=== PATIENT | female | born 1970 | race Caucasian/White ===

== ENCOUNTER 2020-07-27 22:01 | Inpatient (IN) | payer MEDICARE, MEDICAID ==
[~2020-07-27] VITALS: Ht 170.2 cm; Wt 81.7 kg
[2020-07-27] MEDS ORDERED: BUPR100SR PO (22:41)
[2020-07-27] MEDS ORDERED: FLUT16H NASAL (22:41)
[2020-07-27] MEDS ORDERED: QUET25TA PO (22:41)
[2020-07-27] MEDS ORDERED: ACET-2247 PO (22:41)
[2020-07-27] MEDS ORDERED: CHOL500043 PO (22:41)
[2020-07-27] MEDS ORDERED: ROSU10TA22 PO (22:41)
[2020-07-27] MEDS ORDERED: BENZ30CR TP (22:41)
[2020-07-27] MEDS ORDERED: PHYT100T PO (22:41)
[2020-07-27] MEDS ORDERED: PSEU60 PO (22:41)
[2020-07-27] MEDS ORDERED: ASPI-1450 PO (22:41)
[2020-07-27] MEDS ORDERED: METH-372 PO (22:41)
[2020-07-27] MEDS ORDERED: DOCU-350 PO (22:41)
[2020-07-27] MEDS ORDERED: SUMA25TA9 PO (22:41)
[2020-07-27] MEDS ORDERED: LUMA42CA PO (22:41)
[2020-07-27] MEDS ORDERED: POTA20TA83 PO (22:41)
[2020-07-27] MEDS ORDERED: DEXL30CA3 PO (22:41)
[2020-07-27] MEDS ORDERED: ONDA-104 PO (22:41)
[2020-07-27] MEDS ORDERED: CETI-450 PO (22:41)
[2020-07-27] MEDS ORDERED: FLUO-191 PO (22:41)
[2020-07-27] MEDS ORDERED: DICL4100G TP (22:41)
[2020-07-27] MEDS ORDERED: LEVAHFA IH (22:41)
[2020-07-27] MEDS ORDERED: LEVO88TA4 PO (22:41)
[2020-07-27] MEDS ORDERED: BUDE10.2 IH (22:41)
[2020-07-27] MEDS ORDERED: LAMO100 PO (22:41)
[2020-07-27] MEDS ORDERED: TOPI100T37 PO (22:41)
[2020-07-27] MEDS ORDERED: IBUP-2070 PO (22:41)
[2020-07-27] MEDS ORDERED: MONT-35 PO (22:41)
[2020-07-27] MEDS ORDERED: MUPI15CR12 TP (22:41)
[2020-07-27 22:47] LABS: COVID AG,FIA SOURCE NASOPHARYNGEAL
[2020-07-27 22:49] LABS: EOSINOPHILS % (AUTO) 0.8 % (1.0-6.0); HEMATOCRIT 40.5 % (36-46); HEMOGLOBIN 13.4 g/dL (12.0-16.0); LYMPHOCYTES % (AUTO) 22.5 % (22.0-44.0); MEAN CORPUSCULAR HEMOGLOBIN 31.7 pg (26.0-34.0); MEAN CORPUSCULAR HGB CONC 33.1 G/dL (31.0-37.0); MEAN CORPUSCULAR VOLUME 96 fL (80-100); MONOCYTES # (AUTO) 0.3 K/uL (0.1-1.0); MONOCYTES % (AUTO) 7.7 % (2.0-9.0); PLATELET COUNT (AUTO) 154 K/uL (150-450); RED BLOOD CELL COUNT(AUTO) 4.23 MIL/uL (4.00-5.20); RED CELL DISTRIBUTION WIDTH 14.2 % (11.5-14.5)
[2020-07-27 22:58] LABS: ANION GAP 13 mmol/L (8-16); CALCIUM, TOTAL 8.6 mg/dL (8.8-10.5); CARBON DIOXIDE 21 mmol/L (22-29); CHLORIDE 109 mmol/L (98-107); CREATININE 0.94 mg/dL (0.60-1.30); GLOMERULAR FILTR. RATE CALC > 60 mL/min (>60); GLUCOSE,RANDOM 95 mg/dL (70-110); POTASSIUM 3.6 mmol/L (3.5-5.1); SODIUM SERUM 143 mmol/L (136-145); UREA NITROGEN, BLOOD 17 mg/dL (7-18)
[2020-07-27 23:09] LABS: ALANINE AMINOTRANSFERASE 39 U/L (12-78); ALBUMIN 3.8 g/dL (3.4-5.0); ALKALINE PHOSPHATASE 79 U/L (46-116); ASPARTATE AMINOTRANSFERASE 26 U/L (15-37); BILIRUBIN,TOTAL 0.4 mg/dL (0.1-1.0); HCG,QUANTITATIVE 4 mIU/mL (0-6); TOTAL PROTEIN, SERUM 6.5 g/dL (6.4-8.2)
[2020-07-27] MEDS ORDERED: HALOPERIDOL 5 MG TABLET PO PRN (23:15)
[2020-07-28] MEDS ORDERED: IBUPROFEN 800 MG TABLET PO ONE (00:15)
[2020-07-28 00:34] LABS: AMPHET/METH SCREEN,URINE NEGATIVE (NEGATIVE); BARBITURATE SCREEN, URINE NEGATIVE (NEGATIVE); BENZODIAZEPINES SCREEN,URINE NEGATIVE (NEGATIVE); CANNABINOID SCREEN,URINE NEGATIVE (NEGATIVE); COCAINE SCREEN,URINE NEGATIVE (NEGATIVE); METHADONE SCREEN, URINE NEGATIVE (NEGATIVE); OPIATE SCREEN,URINE NEGATIVE (NEGATIVE)
[2020-07-28 00:58] LABS: PHENCYCLIDINE SCREEN,URINE NEGATIVE (NEGATIVE)
[2020-07-28] MEDS: ZOLPIDEM TARTRATE 10 MG TABLET PO PRN (02:40)
[2020-07-28 03:02] VITALS: BP 112/64
[2020-07-28 08:00] LABS: CHOL/HDL RATIO 1.6 (3.9-5.7)
[2020-07-28 08:08] VITALS: BP 108/64
[2020-07-28] MEDS: NICOTINE 21 MG/24 HOUR PATCH TD SCH (09:20)
[2020-07-28] MEDS ORDERED: SUMAtriptan SUCCINATE 25 MG TABLET PO PRN (13:30)
[2020-07-28] MEDS ORDERED: BENZOCAINE/MENTHOL LOZENGE PO PRN (13:30)
[2020-07-28] MEDS ORDERED: PETROLATUM,WHITE 28 GM JELLY TP PRN (13:30)
[2020-07-28] MEDS ORDERED: BACITRACIN 28 GM OINTMENT TP PRN (13:30)
[2020-07-28] MEDS ORDERED: MAG HYDROX/AL HYDROX/SIMETH ES 30 ML SUSPENSION UDCUP PO PRN (13:30)
[2020-07-28] MEDS ORDERED: LOPERAMIDE HCL 2 MG CAPSULE PO PRN (13:30)
[2020-07-28] MEDS ORDERED: ALBUTEROL SULFATE HFA 90 MCG/PUFF 8 GM INHALER IH PRN (13:30)
[2020-07-28] MEDS ORDERED: ONDANSETRON HCL 4 MG TABLET PO PRN (13:30)
[2020-07-28] MEDS ORDERED: LIDOCAINE 5% TRANSDERMAL PATCH TD PRN (13:30)
[2020-07-28] MEDS ORDERED: ACETAMINOPHEN 325 MG TABLET PO PRN (13:30)
[2020-07-28] MEDS ORDERED: CloNIDine HCL 0.1 MG TABLET PO PRN (13:30)
[2020-07-28] MEDS ORDERED: OMEPRAZOLE 20 MG CAPSULE PO PRN (13:30)
[2020-07-28] MEDS: DOCUSATE SODIUM 100 MG CAPSULE PO SCH (13:39)
[2020-07-28 13:52] VITALS: BP 118/68
[2020-07-28] MEDS: IBUPROFEN 600 MG TABLET PO PRN (13:58)
[2020-07-28 16:18] VITALS: BP 106/60
[2020-07-28] MEDS: BUDESONIDE/FORMOTEROL FUMARATE 160-4.5 MCG/PUFF 10.2 GM INHALER IH SCH ×2 (17:00→17:18)
[2020-07-28] MEDS: METHOCARBAMOL 750 MG TABLET PO SCH (17:16)
[2020-07-28] MEDS: DICLOFENAC SODIUM 1% 100 GM GEL [4GM] TP SCH ×2 (17:17→20:21)
[2020-07-28] MEDS: QUEtiapine FUMARATE 25 MG TABLET PO SCH (20:21)
[2020-07-29] MEDS: IBUPROFEN 600 MG TABLET PO PRN (05:54)
[2020-07-29 05:56] VITALS: BP 109/70
[2020-07-29] MEDS ORDERED: LEVOTHYROXINE SODIUM 88 MCG TABLET PO SCH (06:30)
[2020-07-29 08:21] VITALS: BP 107/68
[2020-07-29] MEDS: MONTELUKAST SODIUM 10 MG TABLET PO SCH (10:11)
[2020-07-29] MEDS: ASPIRIN 81 MG CHEWABLE TABLET PO SCH (10:11)
[2020-07-29] MEDS: METHOCARBAMOL 750 MG TABLET PO SCH ×2 (10:11→16:11)
[2020-07-29] MEDS: ROSUVASTATIN CALCIUM 10 MG TABLET PO SCH (10:12)
[2020-07-29] MEDS: DOCUSATE SODIUM 100 MG CAPSULE PO SCH (10:12)
[2020-07-29] MEDS: BuPROPion HCL 150 MG SR TABLET PO SCH ×2 (10:12→16:22)
[2020-07-29] MEDS: BUDESONIDE/FORMOTEROL FUMARATE 160-4.5 MCG/PUFF 10.2 GM INHALER IH SCH ×2 (10:13→16:21)
[2020-07-29] MEDS: FLUTICASONE PROPIONATE 50 MCG/SPRAY 16 GM NASAL SPRAY NASAL SCH (10:14)
[2020-07-29] MEDS: DICLOFENAC SODIUM 1% 100 GM GEL [4GM] TP SCH ×4 (10:15→20:58)
[2020-07-29] MEDS: NICOTINE 21 MG/24 HOUR PATCH TD SCH (10:15)
[2020-07-29] MEDS: ARIPiprazole 10 MG TABLET PO SCH (10:53)
[2020-07-29 16:16] VITALS: BP 125/78
[2020-07-29] MEDS: QUEtiapine FUMARATE 25 MG TABLET PO SCH (20:53)
[2020-07-29] MEDS: CALCIUM CIT/VITAMIN D3 200 MG-250 UNITS TABLET PO SCH (21:53)
[2020-07-30 04:25] VITALS: BP 121/78
[2020-07-30] MEDS: IBUPROFEN 600 MG TABLET PO PRN (04:31)
[2020-07-30 08:11] VITALS: BP 130/80
[2020-07-30] MEDS: BuPROPion HCL 150 MG SR TABLET PO SCH ×3 (09:00→16:34)
[2020-07-30] MEDS: BUDESONIDE/FORMOTEROL FUMARATE 160-4.5 MCG/PUFF 10.2 GM INHALER IH SCH ×2 (09:28→16:33)
[2020-07-30] MEDS: ARIPiprazole 10 MG TABLET PO SCH (09:29)
[2020-07-30] MEDS: MONTELUKAST SODIUM 10 MG TABLET PO SCH (09:29)
[2020-07-30] MEDS: ASPIRIN 81 MG CHEWABLE TABLET PO SCH (09:29)
[2020-07-30] MEDS: FLUTICASONE PROPIONATE 50 MCG/SPRAY 16 GM NASAL SPRAY NASAL SCH (09:29)
[2020-07-30] MEDS: DOCUSATE SODIUM 100 MG CAPSULE PO SCH (09:29)
[2020-07-30] MEDS: METHOCARBAMOL 750 MG TABLET PO SCH ×2 (09:30→16:33)
[2020-07-30] MEDS: ROSUVASTATIN CALCIUM 10 MG TABLET PO SCH (09:30)
[2020-07-30] MEDS: NICOTINE 21 MG/24 HOUR PATCH TD SCH (09:31)
[2020-07-30] MEDS: DICLOFENAC SODIUM 1% 100 GM GEL [4GM] TP SCH ×4 (09:56→20:32)
[2020-07-30] MEDS ORDERED: FLUoxetine HCL 20 MG CAPSULE PO SCH (10:00)
[2020-07-30] MEDS: FLUoxetine HCL 20 MG CAPSULE PO SCH (10:25)
[2020-07-30] MEDS: OMEPRAZOLE 20 MG CAPSULE PO SCH (12:29)
[2020-07-30 16:12] VITALS: BP 120/77
[2020-07-30] MEDS: CALCIUM CIT/VITAMIN D3 200 MG-250 UNITS TABLET PO SCH (20:31)
[2020-07-30] MEDS: LEVOTHYROXINE SODIUM 88 MCG TABLET PO SCH (20:31)
[2020-07-30] MEDS: QUEtiapine FUMARATE 25 MG TABLET PO SCH (20:31)
[2020-07-31 06:01] VITALS: BP 116/75
[2020-07-31] MEDS: IBUPROFEN 600 MG TABLET PO PRN (07:00)
[2020-07-31 08:22] VITALS: BP 106/68
[2020-07-31] MEDS: NICOTINE 21 MG/24 HOUR PATCH TD SCH (09:12)
[2020-07-31] MEDS: DICLOFENAC SODIUM 1% 100 GM GEL [4GM] TP SCH ×4 (09:13→20:37)
[2020-07-31] MEDS: MONTELUKAST SODIUM 10 MG TABLET PO SCH (09:14)
[2020-07-31] MEDS: METHOCARBAMOL 750 MG TABLET PO SCH ×2 (09:14→20:21)
[2020-07-31] MEDS: ROSUVASTATIN CALCIUM 10 MG TABLET PO SCH (09:15)
[2020-07-31] MEDS: CALCIUM CIT/VITAMIN D3 200 MG-250 UNITS TABLET PO SCH ×3 (09:15→16:33)
[2020-07-31] MEDS: FLUTICASONE PROPIONATE 50 MCG/SPRAY 16 GM NASAL SPRAY NASAL SCH (09:18)
[2020-07-31] MEDS: BUDESONIDE/FORMOTEROL FUMARATE 160-4.5 MCG/PUFF 10.2 GM INHALER IH SCH ×2 (09:19→16:32)
[2020-07-31] MEDS: OMEPRAZOLE 20 MG CAPSULE PO SCH (09:22)
[2020-07-31] MEDS: ASPIRIN 81 MG CHEWABLE TABLET PO SCH (09:22)
[2020-07-31] MEDS: DOCUSATE SODIUM 100 MG CAPSULE PO SCH (09:23)
[2020-07-31] MEDS: FLUoxetine HCL 20 MG CAPSULE PO SCH (09:23)
[2020-07-31] MEDS: ARIPiprazole 10 MG TABLET PO SCH (09:23)
[2020-07-31] MEDS: BuPROPion HCL 150 MG SR TABLET PO SCH ×2 (09:28→16:32)
[2020-07-31 16:05] VITALS: BP 115/75
[2020-07-31] MEDS: QUEtiapine FUMARATE 25 MG TABLET PO SCH (20:36)
[2020-07-31] MEDS: LEVOTHYROXINE SODIUM 88 MCG TABLET PO SCH (20:36)
[2020-08-01 07:23] VITALS: BP 112/71
[2020-08-01 08:33] VITALS: BP 126/73
[2020-08-01] MEDS: MONTELUKAST SODIUM 10 MG TABLET PO SCH (09:00)
[2020-08-01 10:07] LABS: COVID AG,FIA SOURCE NASOPHARYNGEAL
[2020-08-01] MEDS: CALCIUM CIT/VITAMIN D3 200 MG-250 UNITS TABLET PO SCH ×3 (10:37→17:18)
[2020-08-01] MEDS: METHOCARBAMOL 750 MG TABLET PO SCH ×2 (10:37→20:29)
[2020-08-01] MEDS: ARIPiprazole 10 MG TABLET PO SCH (10:37)
[2020-08-01] MEDS: ASPIRIN 81 MG CHEWABLE TABLET PO SCH (10:38)
[2020-08-01] MEDS: ROSUVASTATIN CALCIUM 10 MG TABLET PO SCH (10:38)
[2020-08-01] MEDS: BuPROPion HCL 150 MG SR TABLET PO SCH (10:38)
[2020-08-01] MEDS: DOCUSATE SODIUM 100 MG CAPSULE PO SCH (10:38)
[2020-08-01] MEDS: OMEPRAZOLE 20 MG CAPSULE PO SCH (10:38)
[2020-08-01] MEDS: FLUoxetine HCL 20 MG CAPSULE PO SCH (10:38)
[2020-08-01] MEDS: BUDESONIDE/FORMOTEROL FUMARATE 160-4.5 MCG/PUFF 10.2 GM INHALER IH SCH ×2 (10:39→17:18)
[2020-08-01] MEDS: FLUTICASONE PROPIONATE 50 MCG/SPRAY 16 GM NASAL SPRAY NASAL SCH (10:39)
[2020-08-01] MEDS: CHOLECALCIFEROL (VIT D3) 50,000 UNITS [1,250 MCG] CAPSULE PO SCH (10:40)
[2020-08-01] MEDS: NICOTINE 21 MG/24 HOUR PATCH TD SCH (10:41)
[2020-08-01] MEDS: DICLOFENAC SODIUM 1% 100 GM GEL [4GM] TP SCH ×4 (10:41→20:30)
[2020-08-01] MEDS ORDERED: ARIPiprazole ER SUSPENSION 400 MG PRE-FILLED DUAL CHAMBER SYRINGE IM SCH (12:30)
[2020-08-01 16:11] VITALS: BP 122/76
[2020-08-01] MEDS: BuPROPion HCL 100 MG SR TABLET PO SCH (17:17)
[2020-08-01] MEDS: QUEtiapine FUMARATE 25 MG TABLET PO SCH (20:29)
[2020-08-01] MEDS: LEVOTHYROXINE SODIUM 88 MCG TABLET PO SCH (20:29)
[2020-08-02 06:19] VITALS: BP 109/62
[2020-08-02 08:10] VITALS: BP 105/66
[2020-08-02] MEDS: DOCUSATE SODIUM 100 MG CAPSULE PO SCH (08:53)
[2020-08-02] MEDS: CALCIUM CIT/VITAMIN D3 200 MG-250 UNITS TABLET PO SCH ×3 (08:53→16:33)
[2020-08-02] MEDS: ROSUVASTATIN CALCIUM 10 MG TABLET PO SCH (08:54)
[2020-08-02] MEDS: ASPIRIN 81 MG CHEWABLE TABLET PO SCH (08:54)
[2020-08-02] MEDS: METHOCARBAMOL 750 MG TABLET PO SCH ×2 (08:54→16:33)
[2020-08-02] MEDS: ARIPiprazole 15 MG TABLET PO SCH (08:54)
[2020-08-02] MEDS: FLUTICASONE PROPIONATE 50 MCG/SPRAY 16 GM NASAL SPRAY NASAL SCH (08:55)
[2020-08-02] MEDS: BUDESONIDE/FORMOTEROL FUMARATE 160-4.5 MCG/PUFF 10.2 GM INHALER IH SCH (08:55)
[2020-08-02] MEDS: OMEPRAZOLE 20 MG CAPSULE PO SCH (08:55)
[2020-08-02] MEDS: MONTELUKAST SODIUM 10 MG TABLET PO SCH (08:56)
[2020-08-02] MEDS: CHOLECALCIFEROL (VIT D3) 50,000 UNITS [1,250 MCG] CAPSULE PO SCH (08:56)
[2020-08-02] MEDS: NICOTINE 21 MG/24 HOUR PATCH TD SCH (08:57)
[2020-08-02] MEDS: DICLOFENAC SODIUM 1% 100 GM GEL [4GM] TP SCH ×4 (08:57→20:29)
[2020-08-02] MEDS: FLUoxetine HCL 20 MG CAPSULE PO SCH (09:00)
[2020-08-02] MEDS: BuPROPion HCL 100 MG SR TABLET PO SCH ×2 (09:05→16:33)
[2020-08-02 16:15] VITALS: BP 136/72
[2020-08-02] MEDS: LEVALBUTEROL TARTRATE HFA 45 MCG/PUFF 15 GM INHALER IH SCH (16:33)
[2020-08-02] MEDS: QUEtiapine FUMARATE 25 MG TABLET PO SCH (20:28)
[2020-08-02] MEDS: LEVOTHYROXINE SODIUM 88 MCG TABLET PO SCH (20:28)
[2020-08-03] MEDS: IBUPROFEN 600 MG TABLET PO PRN (02:43)
[2020-08-03 02:44] VITALS: BP 119/76
[2020-08-03 08:22] VITALS: BP 126/86
[2020-08-03] MEDS: OMEPRAZOLE 20 MG CAPSULE PO SCH (09:21)
[2020-08-03] MEDS: MONTELUKAST SODIUM 10 MG TABLET PO SCH (09:22)
[2020-08-03] MEDS: CALCIUM CIT/VITAMIN D3 200 MG-250 UNITS TABLET PO SCH ×3 (09:22→16:22)
[2020-08-03] MEDS: DOCUSATE SODIUM 100 MG CAPSULE PO SCH (09:22)
[2020-08-03] MEDS: FLUoxetine HCL 20 MG CAPSULE PO SCH (09:22)
[2020-08-03] MEDS: ARIPiprazole 15 MG TABLET PO SCH (09:22)
[2020-08-03] MEDS: ASPIRIN 81 MG CHEWABLE TABLET PO SCH (09:22)
[2020-08-03] MEDS: ROSUVASTATIN CALCIUM 10 MG TABLET PO SCH (09:23)
[2020-08-03] MEDS: METHOCARBAMOL 750 MG TABLET PO SCH ×2 (09:24→16:22)
[2020-08-03] MEDS: NICOTINE 21 MG/24 HOUR PATCH TD SCH (09:24)
[2020-08-03] MEDS: BuPROPion HCL 100 MG SR TABLET PO SCH ×2 (09:24→16:22)
[2020-08-03] MEDS: LEVALBUTEROL TARTRATE HFA 45 MCG/PUFF 15 GM INHALER IH SCH ×2 (09:25→16:24)
[2020-08-03] MEDS: FLUTICASONE PROPIONATE 50 MCG/SPRAY 16 GM NASAL SPRAY NASAL SCH (09:25)
[2020-08-03] MEDS: DICLOFENAC SODIUM 1% 100 GM GEL [4GM] TP SCH ×4 (09:26→20:55)
[2020-08-03] MEDS: CHOLECALCIFEROL (VIT D3) 50,000 UNITS [1,250 MCG] CAPSULE PO SCH (09:29)
[2020-08-03] MEDS ORDERED: MONTELUKAST SODIUM 10 MG TABLET PO PRN (13:15)
[2020-08-03 16:08] VITALS: BP 127/78
[2020-08-03] MEDS: LEVOTHYROXINE SODIUM 88 MCG TABLET PO SCH (20:49)
[2020-08-03] MEDS: TOPIRAMATE 100 MG TABLET PO SCH (20:49)
[2020-08-03] MEDS: QUEtiapine FUMARATE 25 MG TABLET PO SCH (20:49)
[2020-08-03] MEDS ORDERED: CHOLECALCIFEROL (VIT D3) 50,000 UNITS [1,250 MCG] CAPSULE PO SCH (21:00)
[2020-08-04 00:35] VITALS: BP 108/63
[2020-08-04] MEDS: MAGNESIUM HYDROXIDE SUSPENSION 30 ML UDCUP PO PRN ×2 (02:01→21:36)
[2020-08-04] MEDS: ZOLPIDEM TARTRATE 10 MG TABLET PO PRN (02:01)
[2020-08-04] MEDS: ROSUVASTATIN CALCIUM 10 MG TABLET PO SCH (08:36)
[2020-08-04] MEDS: METHOCARBAMOL 750 MG TABLET PO SCH ×2 (08:36→16:58)
[2020-08-04] MEDS: CALCIUM CIT/VITAMIN D3 200 MG-250 UNITS TABLET PO SCH ×3 (08:37→16:58)
[2020-08-04] MEDS: FLUoxetine HCL 20 MG CAPSULE PO SCH (08:37)
[2020-08-04] MEDS: ARIPiprazole 15 MG TABLET PO SCH (08:37)
[2020-08-04] MEDS: DICLOFENAC SODIUM 1% 100 GM GEL [4GM] TP SCH ×4 (08:38→20:40)
[2020-08-04] MEDS: FLUTICASONE PROPIONATE 50 MCG/SPRAY 16 GM NASAL SPRAY NASAL SCH (08:40)
[2020-08-04] MEDS: LEVALBUTEROL TARTRATE HFA 45 MCG/PUFF 15 GM INHALER IH SCH ×2 (08:41→16:59)
[2020-08-04 08:45] VITALS: BP 106/66
[2020-08-04] MEDS: BuPROPion HCL 100 MG SR TABLET PO SCH ×2 (08:50→16:58)
[2020-08-04] MEDS: MULTIVITAMINS WITH MINERALS, THERAPEUTIC TABLET PO SCH (08:50)
[2020-08-04] MEDS: DOCUSATE SODIUM 100 MG CAPSULE PO SCH (08:51)
[2020-08-04] MEDS: NICOTINE 21 MG/24 HOUR PATCH TD SCH (08:51)
[2020-08-04] MEDS: ASPIRIN 81 MG CHEWABLE TABLET PO SCH (08:54)
[2020-08-04] MEDS ORDERED: CHOLECALCIFEROL (VIT D3) 50,000 UNITS [1,250 MCG] CAPSULE PO SCH (09:00)
[2020-08-04] MEDS: OMEPRAZOLE 20 MG CAPSULE PO SCH (09:15)
[2020-08-04 16:08] VITALS: BP 126/79
[2020-08-04] MEDS: CHOLECALCIFEROL (VIT D3) 50,000 UNITS [1,250 MCG] CAPSULE PO SCH (20:38)
[2020-08-04] MEDS: LEVOTHYROXINE SODIUM 88 MCG TABLET PO SCH (20:39)
[2020-08-04] MEDS: TOPIRAMATE 100 MG TABLET PO SCH (20:39)
[2020-08-04] MEDS: QUEtiapine FUMARATE 25 MG TABLET PO SCH (20:39)
[2020-08-05 00:14] VITALS: BP 110/73
[2020-08-05 08:20] VITALS: BP 103/70
[2020-08-05] MEDS: OMEPRAZOLE 20 MG CAPSULE PO SCH (09:21)
[2020-08-05] MEDS: BuPROPion HCL 100 MG SR TABLET PO SCH (09:21)
[2020-08-05] MEDS: MULTIVITAMINS WITH MINERALS, THERAPEUTIC TABLET PO SCH (09:22)
[2020-08-05] MEDS: DOCUSATE SODIUM 100 MG CAPSULE PO SCH (09:22)
[2020-08-05] MEDS: FLUoxetine HCL 20 MG CAPSULE PO SCH (09:22)
[2020-08-05] MEDS: ASPIRIN 81 MG CHEWABLE TABLET PO SCH (09:22)
[2020-08-05] MEDS: ARIPiprazole 15 MG TABLET PO SCH (09:22)
[2020-08-05] MEDS: ROSUVASTATIN CALCIUM 10 MG TABLET PO SCH (09:23)
[2020-08-05] MEDS: CALCIUM CIT/VITAMIN D3 200 MG-250 UNITS TABLET PO SCH ×3 (09:23→16:50)
[2020-08-05] MEDS: METHOCARBAMOL 750 MG TABLET PO SCH ×2 (09:24→16:50)
[2020-08-05] MEDS: FLUTICASONE PROPIONATE 50 MCG/SPRAY 16 GM NASAL SPRAY NASAL SCH (09:26)
[2020-08-05] MEDS: NICOTINE 21 MG/24 HOUR PATCH TD SCH (09:27)
[2020-08-05] MEDS: DICLOFENAC SODIUM 1% 100 GM GEL [4GM] TP SCH ×4 (09:28→20:46)
[2020-08-05] MEDS: LEVALBUTEROL TARTRATE HFA 45 MCG/PUFF 15 GM INHALER IH SCH ×2 (10:08→16:49)
[2020-08-05] MEDS ORDERED: QUEtiapine FUMARATE 25 MG TABLET PO PRN (10:30)
[2020-08-05 16:11] VITALS: BP 104/61
[2020-08-05] MEDS: CHOLECALCIFEROL (VIT D3) 50,000 UNITS [1,250 MCG] CAPSULE PO SCH (20:45)
[2020-08-05] MEDS: TOPIRAMATE 100 MG TABLET PO SCH (20:45)
[2020-08-05] MEDS: LEVOTHYROXINE SODIUM 88 MCG TABLET PO SCH (20:46)
[2020-08-05] MEDS: QUEtiapine FUMARATE 25 MG TABLET PO SCH (20:46)
[2020-08-06 05:32] VITALS: BP 114/70
[2020-08-06 08:24] VITALS: BP 101/57
[2020-08-06] MEDS: LEVALBUTEROL TARTRATE HFA 45 MCG/PUFF 15 GM INHALER IH SCH ×2 (08:44→17:02)
[2020-08-06] MEDS: FLUTICASONE PROPIONATE 50 MCG/SPRAY 16 GM NASAL SPRAY NASAL SCH (08:44)
[2020-08-06] MEDS: NICOTINE 21 MG/24 HOUR PATCH TD SCH (08:45)
[2020-08-06] MEDS: OMEPRAZOLE 20 MG CAPSULE PO SCH (09:22)
[2020-08-06] MEDS: CALCIUM CIT/VITAMIN D3 200 MG-250 UNITS TABLET PO SCH ×3 (09:22→17:01)
[2020-08-06] MEDS: DOCUSATE SODIUM 100 MG CAPSULE PO SCH (09:23)
[2020-08-06] MEDS: ROSUVASTATIN CALCIUM 10 MG TABLET PO SCH (09:25)
[2020-08-06] MEDS: MULTIVITAMINS WITH MINERALS, THERAPEUTIC TABLET PO SCH (09:25)
[2020-08-06] MEDS: DICLOFENAC SODIUM 1% 100 GM GEL [4GM] TP SCH ×4 (09:25→20:50)
[2020-08-06] MEDS: ARIPiprazole 15 MG TABLET PO SCH (09:42)
[2020-08-06] MEDS: FLUoxetine HCL 20 MG CAPSULE PO SCH (09:42)
[2020-08-06] MEDS: ASPIRIN 81 MG CHEWABLE TABLET PO SCH (09:43)
[2020-08-06] MEDS: BuPROPion HCL 100 MG SR TABLET PO SCH (09:43)
[2020-08-06] MEDS: METHOCARBAMOL 750 MG TABLET PO SCH ×2 (11:18→20:29)
[2020-08-06 16:18] VITALS: BP 108/61
[2020-08-06] MEDS: QUEtiapine FUMARATE 25 MG TABLET PO SCH (20:29)
[2020-08-06] MEDS: TOPIRAMATE 100 MG TABLET PO SCH (20:29)
[2020-08-06] MEDS: LEVOTHYROXINE SODIUM 88 MCG TABLET PO SCH (20:29)
[2020-08-07 00:13] VITALS: BP 105/66
[2020-08-07 08:24] VITALS: BP 109/66
[2020-08-07] MEDS: ARIPiprazole 15 MG TABLET PO SCH (08:58)
[2020-08-07] MEDS: OMEPRAZOLE 20 MG CAPSULE PO SCH (08:58)
[2020-08-07] MEDS: DOCUSATE SODIUM 100 MG CAPSULE PO SCH (08:58)
[2020-08-07] MEDS: FLUoxetine HCL 20 MG CAPSULE PO SCH (08:58)
[2020-08-07] MEDS: MULTIVITAMINS WITH MINERALS, THERAPEUTIC TABLET PO SCH (08:59)
[2020-08-07] MEDS: METHOCARBAMOL 750 MG TABLET PO SCH ×2 (08:59→17:06)
[2020-08-07] MEDS: ASPIRIN 81 MG CHEWABLE TABLET PO SCH (08:59)
[2020-08-07] MEDS: BuPROPion HCL 100 MG SR TABLET PO SCH (08:59)
[2020-08-07] MEDS: ROSUVASTATIN CALCIUM 10 MG TABLET PO SCH (09:00)
[2020-08-07] MEDS: CALCIUM CIT/VITAMIN D3 200 MG-250 UNITS TABLET PO SCH ×3 (09:00→17:03)
[2020-08-07] MEDS: FLUTICASONE PROPIONATE 50 MCG/SPRAY 16 GM NASAL SPRAY NASAL SCH (09:03)
[2020-08-07] MEDS: LEVALBUTEROL TARTRATE HFA 45 MCG/PUFF 15 GM INHALER IH SCH ×2 (09:04→17:10)
[2020-08-07] MEDS: NICOTINE 21 MG/24 HOUR PATCH TD SCH (09:04)
[2020-08-07] MEDS: DICLOFENAC SODIUM 1% 100 GM GEL [4GM] TP SCH ×4 (09:58→20:26)
[2020-08-07 16:14] VITALS: BP 113/72
[2020-08-07] MEDS: LEVOTHYROXINE SODIUM 88 MCG TABLET PO SCH (20:24)
[2020-08-07] MEDS: QUEtiapine FUMARATE 25 MG TABLET PO SCH (20:24)
[2020-08-07] MEDS: TOPIRAMATE 100 MG TABLET PO SCH (20:24)
[2020-08-08 00:13] VITALS: BP 102/61
[2020-08-08 08:14] VITALS: BP 109/69
[2020-08-08 08:23] LABS: COVID AG,FIA SOURCE NASOPHARYNGEAL
[2020-08-08] MEDS: NICOTINE 21 MG/24 HOUR PATCH TD SCH (09:43)
[2020-08-08] MEDS: DOCUSATE SODIUM 100 MG CAPSULE PO SCH (09:43)
[2020-08-08] MEDS: FLUoxetine HCL 20 MG CAPSULE PO SCH (09:44)
[2020-08-08] MEDS: MULTIVITAMINS WITH MINERALS, THERAPEUTIC TABLET PO SCH (09:44)
[2020-08-08] MEDS: ARIPiprazole 15 MG TABLET PO SCH (09:44)
[2020-08-08] MEDS: ASPIRIN 81 MG CHEWABLE TABLET PO SCH (09:44)
[2020-08-08] MEDS: OMEPRAZOLE 20 MG CAPSULE PO SCH (09:44)
[2020-08-08] MEDS: CALCIUM CIT/VITAMIN D3 200 MG-250 UNITS TABLET PO SCH ×3 (09:45→17:05)
[2020-08-08] MEDS: DICLOFENAC SODIUM 1% 100 GM GEL [4GM] TP SCH ×4 (09:45→20:38)
[2020-08-08] MEDS: FLUTICASONE PROPIONATE 50 MCG/SPRAY 16 GM NASAL SPRAY NASAL SCH (09:55)
[2020-08-08] MEDS: LEVALBUTEROL TARTRATE HFA 45 MCG/PUFF 15 GM INHALER IH SCH ×2 (09:55→17:04)
[2020-08-08] MEDS: ROSUVASTATIN CALCIUM 10 MG TABLET PO SCH (10:06)
[2020-08-08] MEDS: METHOCARBAMOL 750 MG TABLET PO SCH ×2 (10:06→17:05)
[2020-08-08 16:12] VITALS: BP 107/68
[2020-08-08] MEDS: CHOLECALCIFEROL (VIT D3) 50,000 UNITS [1,250 MCG] CAPSULE PO SCH (20:37)
[2020-08-08] MEDS: LEVOTHYROXINE SODIUM 88 MCG TABLET PO SCH (20:37)
[2020-08-08] MEDS: TOPIRAMATE 100 MG TABLET PO SCH (20:38)
[2020-08-08] MEDS: QUEtiapine FUMARATE 25 MG TABLET PO SCH (20:38)
[2020-08-09 05:39] VITALS: BP 104/60
[2020-08-09] MEDS: IBUPROFEN 600 MG TABLET PO PRN (05:41)
[2020-08-09 08:18] VITALS: BP 105/60
[2020-08-09] MEDS ORDERED: ARIP15TA2 PO (08:35)
[2020-08-09] MEDS ORDERED: FLUO-191 PO (08:36)
[2020-08-09] MEDS ORDERED: QUET25TA PO (08:37)
[2020-08-09] MEDS ORDERED: ARIP400S3 IM (08:37)
[2020-08-09] MEDS ORDERED: TOPI100T37 PO (08:37)
[2020-08-09] MEDS: ASPIRIN 81 MG CHEWABLE TABLET PO SCH (08:57)
[2020-08-09] MEDS: ARIPiprazole 15 MG TABLET PO SCH (08:57)
[2020-08-09] MEDS: DOCUSATE SODIUM 100 MG CAPSULE PO SCH (08:57)
[2020-08-09] MEDS: OMEPRAZOLE 20 MG CAPSULE PO SCH (08:57)
[2020-08-09] MEDS: FLUoxetine HCL 20 MG CAPSULE PO SCH (08:57)
[2020-08-09] MEDS: MULTIVITAMINS WITH MINERALS, THERAPEUTIC TABLET PO SCH (08:57)
[2020-08-09] MEDS: METHOCARBAMOL 750 MG TABLET PO SCH (08:58)
[2020-08-09] MEDS: ROSUVASTATIN CALCIUM 10 MG TABLET PO SCH (08:58)
[2020-08-09] MEDS: CALCIUM CIT/VITAMIN D3 200 MG-250 UNITS TABLET PO SCH (08:58)
[2020-08-09] MEDS: NICOTINE 21 MG/24 HOUR PATCH TD SCH (08:59)
[2020-08-09] MEDS: DICLOFENAC SODIUM 1% 100 GM GEL [4GM] TP SCH (08:59)
[2020-08-09] MEDS: LEVALBUTEROL TARTRATE HFA 45 MCG/PUFF 15 GM INHALER IH SCH (09:00)
[2020-08-09] MEDS: FLUTICASONE PROPIONATE 50 MCG/SPRAY 16 GM NASAL SPRAY NASAL SCH (09:00)
== END 2020-08-09 11:00 | disposition home or self-care (01) | DRG 885 ==
LOC: EMS 22:01 → UNDOADMIN 23:00 → B2X 23:00
DX: F25.0 Schizoaffective disorder, bipolar type (principal); R45.851 Suicidal ideations; E03.9 Hypothyroidism, unspecified; F43.10 Post-traumatic stress disorder, unspecified; I89.0 Lymphedema, not elsewhere classified; M81.0 Age-related osteoporosis without current pathological fracture; Z86.718 Personal history of other venous thrombosis and embolism; Z59.0 Homelessness; Z90.710 Acquired absence of both cervix and uterus; E55.9 Vitamin D deficiency, unspecified; F43.12 Post-traumatic stress disorder, chronic; G43.909 Migraine, unspecified, not intractable, without status migrainosus; K21.9 Gastro-esophageal reflux disease without esophagitis; M19.90 Unspecified osteoarthritis, unspecified site; Z20.822 Contact with and (suspected) exposure to COVID-19; Z79.899 Other long term (current) drug therapy
CPT/HCPCS: 87426; 99285; A9575; G0480; J0401; J3535; Q0162

== ENCOUNTER 2020-10-19 09:43 | Inpatient (IN) | payer MEDICARE, MEDICAID ==
[~2020-10-19] VITALS: Ht 168.9 cm; Wt 77.8 kg
[~2020-10-19 09:43] MED LIST: ARIP15TA27 PO; ARIP400S3 IM; FLUO-191 PO; QUET25TA PO; TOPI100T37 PO
[2020-10-19] MEDS ORDERED: ZOLPIDEM TARTRATE 10 MG TABLET PO PRN (13:30)
[2020-10-19 14:25] LABS: GLUCOMETER DEV NAME(LOC) POC.BV
[2020-10-19 16:08] VITALS: BP 114/77
[2020-10-19] MEDS ORDERED: ALBUTEROL SULFATE HFA 90 MCG/PUFF 8 GM INHALER IH PRN (17:30)
[2020-10-19] MEDS: IBUPROFEN 600 MG TABLET PO PRN (17:36)
[2020-10-19] MEDS: HALOPERIDOL 5 MG TABLET PO PRN (17:36)
[2020-10-19 17:37] VITALS: BP 122/67
[2020-10-20 00:07] VITALS: BP 122/68
[2020-10-20] MEDS: LEVOTHYROXINE SODIUM 88 MCG TABLET PO SCH (06:39)
[2020-10-20 07:09] LABS: BASOPHILS % (AUTO) 0.8 % (0.0-2.0); HEMATOCRIT 38.9 % (36-46); HEMOGLOBIN 12.8 g/dL (12.0-16.0); LYMPHOCYTES # (AUTO) 1.3 K/uL (1.0-4.8); LYMPHOCYTES % (AUTO) 28.2 % (22.0-44.0); MEAN CORPUSCULAR HGB CONC 32.9 G/dL (31.0-37.0); MEAN CORPUSCULAR VOLUME 97 fL (80-100); MONOCYTES # (AUTO) 0.3 K/uL (0.1-1.0); MONOCYTES % (AUTO) 5.9 % (2.0-9.0); NEUTROPHILS # (AUTO) 2.8 K/uL (1.8-7.7); NEUTROPHILS % (AUTO) 63.1 % (40.0-70.0); PLATELET COUNT (AUTO) 155 K/uL (150-450); RED CELL DISTRIBUTION WIDTH 14.5 % (11.5-14.5)
[2020-10-20 07:28] LABS: HEMOGLOBIN A1C 4.1 % (3.8-5.6)
[2020-10-20 07:45] LABS: ALANINE AMINOTRANSFERASE 37 U/L (12-78); ALBUMIN 3.8 g/dL (3.4-5.0); ALKALINE PHOSPHATASE 83 U/L (46-116); ANION GAP 14 mmol/L (8-16); ASPARTATE AMINOTRANSFERASE 30 U/L (15-37); BILIRUBIN,TOTAL 0.5 mg/dL (0.1-1.0); CALCIUM, TOTAL 8.5 mg/dL (8.8-10.5); CARBON DIOXIDE 23 mmol/L (22-29); CHLORIDE 108 mmol/L (98-107); CREATININE 0.77 mg/dL (0.60-1.30); FREE T4 (FREE THYROXINE) 1.37 ng/dL (0.76-1.46); GLOMERULAR FILTR. RATE CALC > 60 mL/min (>60); GLUCOSE,RANDOM 97 mg/dL (70-110); HCG,QUANTITATIVE 5 mIU/mL (0-6); POTASSIUM 4.2 mmol/L (3.5-5.1); SODIUM SERUM 145 mmol/L (136-145); THYROID STIMULATING HORMONE 1.49 uIU/mL (0.36-3.74); TOTAL PROTEIN, SERUM 6.7 g/dL (6.4-8.2); UREA NITROGEN, BLOOD 11 mg/dL (7-18)
[2020-10-20] MEDS: HALOPERIDOL 5 MG TABLET PO PRN (08:16)
[2020-10-20 08:19] VITALS: BP 107/66
[2020-10-20] MEDS: BUDESONIDE/FORMOTEROL FUMARATE 160-4.5 MCG/PUFF 10.2 GM INHALER IH SCH ×2 (08:27→16:22)
[2020-10-20] MEDS: LORazepam 2 MG TABLET PO PRN (08:52)
[2020-10-20] MEDS: DIVALPROEX SODIUM 500 MG DR TABLET PO SCH ×2 (10:32→20:20)
[2020-10-20] MEDS: QUEtiapine FUMARATE 25 MG TABLET PO SCH ×3 (10:32→20:20)
[2020-10-20 16:08] VITALS: BP 109/66
[2020-10-20] MEDS: TOPIRAMATE 100 MG TABLET PO SCH (20:20)
[2020-10-21 00:12] VITALS: BP 91/52
[2020-10-21] MEDS: LEVOTHYROXINE SODIUM 88 MCG TABLET PO SCH (06:51)
[2020-10-21 07:52] LABS: AMPHET/METH SCREEN,URINE NEGATIVE (NEGATIVE); APPEARANCE,URINE CLEAR (CLEAR); BARBITURATE SCREEN, URINE NEGATIVE (NEGATIVE); BENZODIAZEPINES SCREEN,URINE NEGATIVE (NEGATIVE); BILIRUBIN,URINE NEGATIVE (NEGATIVE); CANNABINOID SCREEN,URINE NEGATIVE (NEGATIVE); COCAINE SCREEN,URINE NEGATIVE (NEGATIVE); GLUCOSE, URINE (UA) NEGATIVE (NEGATIVE); KETONES,URINE NEGATIVE (NEGATIVE); LEUKOCYTE ESTERASE ,URINE NEGATIVE (NEGATIVE); METHADONE SCREEN, URINE NEGATIVE (NEGATIVE); NITRATE,URINE NEGATIVE (NEGATIVE); OCCULT BLOOD,URINE NEGATIVE (NEGATIVE); OPIATE SCREEN,URINE NEGATIVE (NEGATIVE); PROTEIN,URINE NEGATIVE (NEGATIVE); UROBILINOGEN,URINE 0.2 mg/dL (<=1.0)
[2020-10-21 07:54] LABS: PHENCYCLIDINE SCREEN,URINE NEGATIVE (NEGATIVE)
[2020-10-21 08:08] VITALS: BP 102/61
[2020-10-21] MEDS: DIVALPROEX SODIUM 500 MG DR TABLET PO SCH ×2 (08:46→20:53)
[2020-10-21] MEDS: QUEtiapine FUMARATE 25 MG TABLET PO SCH ×3 (08:47→20:53)
[2020-10-21] MEDS: LORazepam 2 MG TABLET PO PRN (08:47)
[2020-10-21] MEDS: HALOPERIDOL 5 MG TABLET PO PRN ×2 (08:47→20:53)
[2020-10-21] MEDS: BUDESONIDE/FORMOTEROL FUMARATE 160-4.5 MCG/PUFF 10.2 GM INHALER IH SCH ×2 (10:43→16:56)
[2020-10-21] MEDS ORDERED: *PATIENT'S OWN MED [ENTER DRUG, DOSE, FREQUENCY IN COMMENTS] CLINICAL SCH (11:45)
[2020-10-21] MEDS ORDERED: METHOCARBAMOL 500 MG TABLET PO PRN (14:15)
[2020-10-21] MEDS: IBUPROFEN 600 MG TABLET PO PRN (15:39)
[2020-10-21] MEDS: VIIBRYD 20 MG PO SCH (16:10)
[2020-10-21 16:13] VITALS: BP 124/56
[2020-10-21] MEDS: ROSUVASTATIN CALCIUM 10 MG TABLET PO SCH (20:52)
[2020-10-21] MEDS: TOPIRAMATE 100 MG TABLET PO SCH (20:53)
[2020-10-22 05:24] VITALS: BP 104/62
[2020-10-22] MEDS: LEVOTHYROXINE SODIUM 88 MCG TABLET PO SCH (06:29)
[2020-10-22 08:11] VITALS: BP 109/64
[2020-10-22] MEDS: QUEtiapine FUMARATE 25 MG TABLET PO SCH ×3 (08:44→20:43)
[2020-10-22] MEDS: VIIBRYD 20 MG PO SCH (08:45)
[2020-10-22] MEDS: DIVALPROEX SODIUM 500 MG DR TABLET PO SCH ×2 (08:45→20:42)
[2020-10-22] MEDS: BUDESONIDE/FORMOTEROL FUMARATE 160-4.5 MCG/PUFF 10.2 GM INHALER IH SCH ×2 (08:46→16:39)
[2020-10-22] MEDS ORDERED: CALCIUM CIT/VITAMIN D3 200 MG-250 UNITS TABLET PO SCH (09:00)
[2020-10-22] MEDS: OMEPRAZOLE 20 MG CAPSULE PO SCH (11:50)
[2020-10-22] MEDS: CALCIUM CIT/VITAMIN D3 200 MG-250 UNITS TABLET PO SCH (16:39)
[2020-10-22 17:41] VITALS: BP 116/60
[2020-10-22] MEDS: TOPIRAMATE 100 MG TABLET PO SCH (20:42)
[2020-10-23 05:21] VITALS: BP 106/56
[2020-10-23] MEDS: LEVOTHYROXINE SODIUM 88 MCG TABLET PO SCH (06:46)
[2020-10-23] MEDS: DIVALPROEX SODIUM 500 MG DR TABLET PO SCH ×2 (08:31→21:00)
[2020-10-23] MEDS: VIIBRYD 20 MG PO SCH (08:31)
[2020-10-23] MEDS: BUDESONIDE/FORMOTEROL FUMARATE 160-4.5 MCG/PUFF 10.2 GM INHALER IH SCH ×2 (08:31→17:00)
[2020-10-23] MEDS: OMEPRAZOLE 20 MG CAPSULE PO SCH (08:31)
[2020-10-23] MEDS: CALCIUM CIT/VITAMIN D3 200 MG-250 UNITS TABLET PO SCH ×3 (08:32→16:30)
[2020-10-23] MEDS: QUEtiapine FUMARATE 25 MG TABLET PO SCH ×3 (08:32→21:00)
[2020-10-23 12:31] VITALS: BP 106/57
[2020-10-23] MEDS: HALOPERIDOL 5 MG TABLET PO PRN ×2 (13:28→19:11)
[2020-10-23 16:59] VITALS: BP 121/95
[2020-10-23] MEDS: ROSUVASTATIN CALCIUM 10 MG TABLET PO SCH (21:00)
[2020-10-23] MEDS: TOPIRAMATE 100 MG TABLET PO SCH (21:00)
[2020-10-23] MEDS: IBUPROFEN 600 MG TABLET PO PRN (21:20)
[2020-10-23 21:21] VITALS: BP 111/64
[2020-10-24 05:36] VITALS: BP 109/61
[2020-10-24] MEDS: LEVOTHYROXINE SODIUM 88 MCG TABLET PO SCH (06:22)
[2020-10-24 07:15] LABS: COVID AG,FIA SOURCE NASOPHARYNGEAL
[2020-10-24 08:06] VITALS: BP 106/55
[2020-10-24] MEDS: CALCIUM CIT/VITAMIN D3 200 MG-250 UNITS TABLET PO SCH ×3 (08:16→16:35)
[2020-10-24] MEDS: DIVALPROEX SODIUM 500 MG DR TABLET PO SCH ×2 (08:16→21:08)
[2020-10-24] MEDS: BUDESONIDE/FORMOTEROL FUMARATE 160-4.5 MCG/PUFF 10.2 GM INHALER IH SCH ×2 (08:16→16:36)
[2020-10-24] MEDS: VIIBRYD 20 MG PO SCH (08:17)
[2020-10-24] MEDS: OMEPRAZOLE 20 MG CAPSULE PO SCH (08:17)
[2020-10-24] MEDS: QUEtiapine FUMARATE 25 MG TABLET PO SCH (08:17)
[2020-10-24] MEDS ORDERED: QUEtiapine FUMARATE 25 MG TABLET PO PRN (10:30)
[2020-10-24 18:40] VITALS: BP 105/70
[2020-10-24 21:04] VITALS: BP 104/73
[2020-10-24] MEDS: IBUPROFEN 600 MG TABLET PO PRN (21:07)
[2020-10-24] MEDS: QUEtiapine FUMARATE 100 MG TABLET PO SCH (21:08)
[2020-10-24] MEDS: TOPIRAMATE 100 MG TABLET PO SCH (21:08)
[2020-10-25 02:34] VITALS: BP 105/68
[2020-10-25] MEDS: LEVOTHYROXINE SODIUM 88 MCG TABLET PO SCH (06:39)
[2020-10-25 08:27] VITALS: BP 109/68
[2020-10-25] MEDS: VIIBRYD 20 MG PO SCH (08:54)
[2020-10-25] MEDS: CALCIUM CIT/VITAMIN D3 200 MG-250 UNITS TABLET PO SCH ×3 (08:55→16:14)
[2020-10-25] MEDS: OMEPRAZOLE 20 MG CAPSULE PO SCH (08:56)
[2020-10-25] MEDS: IBUPROFEN 600 MG TABLET PO PRN (08:56)
[2020-10-25] MEDS: DIVALPROEX SODIUM 500 MG DR TABLET PO SCH ×2 (08:56→20:09)
[2020-10-25] MEDS: BUDESONIDE/FORMOTEROL FUMARATE 160-4.5 MCG/PUFF 10.2 GM INHALER IH SCH ×2 (08:57→16:13)
[2020-10-25 16:02] VITALS: BP 109/71
[2020-10-25] MEDS: QUEtiapine FUMARATE 100 MG TABLET PO SCH (20:09)
[2020-10-25] MEDS: TOPIRAMATE 100 MG TABLET PO SCH (20:09)
[2020-10-25] MEDS: ROSUVASTATIN CALCIUM 10 MG TABLET PO SCH (20:11)
[2020-10-26 00:17] VITALS: BP 98/62
[2020-10-26] MEDS: LEVOTHYROXINE SODIUM 88 MCG TABLET PO SCH (06:54)
[2020-10-26] MEDS: VIIBRYD 20 MG PO SCH (08:22)
[2020-10-26] MEDS: OMEPRAZOLE 20 MG CAPSULE PO SCH (08:22)
[2020-10-26] MEDS: DIVALPROEX SODIUM 500 MG DR TABLET PO SCH ×2 (08:22→20:02)
[2020-10-26] MEDS: CALCIUM CIT/VITAMIN D3 200 MG-250 UNITS TABLET PO SCH ×3 (08:22→16:53)
[2020-10-26] MEDS: BUDESONIDE/FORMOTEROL FUMARATE 160-4.5 MCG/PUFF 10.2 GM INHALER IH SCH ×2 (08:26→16:52)
[2020-10-26 08:45] VITALS: BP 106/66
[2020-10-26 16:07] VITALS: BP 113/56
[2020-10-26] MEDS: TOPIRAMATE 100 MG TABLET PO SCH (20:02)
[2020-10-26] MEDS: QUEtiapine FUMARATE 100 MG TABLET PO SCH (20:04)
[2020-10-27 00:17] VITALS: BP 102/63
[2020-10-27] MEDS: LEVOTHYROXINE SODIUM 88 MCG TABLET PO SCH (06:49)
[2020-10-27 08:23] VITALS: BP 101/68
[2020-10-27] MEDS: CALCIUM CIT/VITAMIN D3 200 MG-250 UNITS TABLET PO SCH ×3 (08:30→16:20)
[2020-10-27] MEDS: DIVALPROEX SODIUM 500 MG DR TABLET PO SCH ×2 (08:30→21:10)
[2020-10-27] MEDS: OMEPRAZOLE 20 MG CAPSULE PO SCH (08:30)
[2020-10-27] MEDS: VIIBRYD 20 MG PO SCH (08:31)
[2020-10-27] MEDS: BUDESONIDE/FORMOTEROL FUMARATE 160-4.5 MCG/PUFF 10.2 GM INHALER IH SCH ×2 (08:32→16:20)
[2020-10-27] MEDS: IBUPROFEN 600 MG TABLET PO PRN (12:17)
[2020-10-27 16:08] VITALS: BP 108/70
[2020-10-27] MEDS ORDERED: *PATIENT'S OWN MED [ENTER DRUG, DOSE, FREQUENCY IN COMMENTS] CLINICAL SCH (17:00)
[2020-10-27] MEDS: QUEtiapine FUMARATE 100 MG TABLET PO SCH (21:10)
[2020-10-27] MEDS: TOPIRAMATE 100 MG TABLET PO SCH (21:10)
[2020-10-27] MEDS: ROSUVASTATIN CALCIUM 10 MG TABLET PO SCH (21:12)
[2020-10-28 05:24] VITALS: BP 106/52
[2020-10-28] MEDS: LEVOTHYROXINE SODIUM 88 MCG TABLET PO SCH (06:35)
[2020-10-28 08:19] VITALS: BP 108/66
[2020-10-28] MEDS: OMEPRAZOLE 20 MG CAPSULE PO SCH (08:31)
[2020-10-28] MEDS: BUDESONIDE/FORMOTEROL FUMARATE 160-4.5 MCG/PUFF 10.2 GM INHALER IH SCH ×2 (08:31→16:31)
[2020-10-28] MEDS: CALCIUM CIT/VITAMIN D3 200 MG-250 UNITS TABLET PO SCH ×3 (08:32→16:31)
[2020-10-28] MEDS: DIVALPROEX SODIUM 500 MG DR TABLET PO SCH ×2 (08:32→20:43)
[2020-10-28] MEDS: VIIBRYD 20 MG PO SCH (08:32)
[2020-10-28] MEDS ORDERED: [UNRECOGNIZED DRUG - OTHER] PO SCH (09:00)
[2020-10-28 16:02] VITALS: BP 104/59
[2020-10-28 16:26] VITALS: BP 111/69
[2020-10-28] MEDS: IBUPROFEN 600 MG TABLET PO PRN (16:29)
[2020-10-28] MEDS: QUEtiapine FUMARATE 100 MG TABLET PO SCH (20:43)
[2020-10-28] MEDS: TOPIRAMATE 100 MG TABLET PO SCH (20:43)
[2020-10-29] VITALS: BP 91/56
[2020-10-29] MEDS: LEVOTHYROXINE SODIUM 88 MCG TABLET PO SCH (06:24)
[2020-10-29 08:06] VITALS: BP 91/52
[2020-10-29] MEDS: VIIBRYD 20 MG PO SCH (08:23)
[2020-10-29] MEDS: CALCIUM CIT/VITAMIN D3 200 MG-250 UNITS TABLET PO SCH ×3 (08:24→16:13)
[2020-10-29] MEDS: DIVALPROEX SODIUM 500 MG DR TABLET PO SCH ×2 (08:25→20:08)
[2020-10-29] MEDS: OMEPRAZOLE 20 MG CAPSULE PO SCH (08:26)
[2020-10-29] MEDS: BUDESONIDE/FORMOTEROL FUMARATE 160-4.5 MCG/PUFF 10.2 GM INHALER IH SCH ×2 (08:26→16:17)
[2020-10-29 12:10] VITALS: BP 94/56
[2020-10-29 16:09] VITALS: BP 104/72
[2020-10-29] MEDS: IBUPROFEN 600 MG TABLET PO PRN (17:39)
[2020-10-29] MEDS: BISMUTH SUBSALICYLATE 262 MG CHEWABLE TABLET CHEW PRN (18:47)
[2020-10-29] MEDS: ROSUVASTATIN CALCIUM 10 MG TABLET PO SCH (20:09)
[2020-10-29] MEDS: QUEtiapine FUMARATE 100 MG TABLET PO SCH (20:10)
[2020-10-29] MEDS: TOPIRAMATE 100 MG TABLET PO SCH (20:11)
[2020-10-30 00:42] VITALS: BP 103/62
[2020-10-30] MEDS: BISMUTH SUBSALICYLATE 262 MG CHEWABLE TABLET CHEW PRN ×2 (04:07→16:07)
[2020-10-30] MEDS: LEVOTHYROXINE SODIUM 88 MCG TABLET PO SCH (07:02)
[2020-10-30 08:00] VITALS: BP 97/56
[2020-10-30] MEDS: OMEPRAZOLE 20 MG CAPSULE PO SCH (08:14)
[2020-10-30] MEDS: CALCIUM CIT/VITAMIN D3 200 MG-250 UNITS TABLET PO SCH ×3 (08:14→16:04)
[2020-10-30] MEDS: DIVALPROEX SODIUM 500 MG DR TABLET PO SCH ×2 (08:14→20:05)
[2020-10-30] MEDS: BUDESONIDE/FORMOTEROL FUMARATE 160-4.5 MCG/PUFF 10.2 GM INHALER IH SCH ×2 (08:16→16:04)
[2020-10-30] MEDS: VIIBRYD 20 MG PO SCH (08:16)
[2020-10-30 16:11] VITALS: BP 102/60
[2020-10-30] MEDS: QUEtiapine FUMARATE 100 MG TABLET PO SCH (20:05)
[2020-10-30] MEDS: TOPIRAMATE 100 MG TABLET PO SCH (20:06)
[2020-10-31 00:33] VITALS: BP 101/63
[2020-10-31] MEDS: LEVOTHYROXINE SODIUM 88 MCG TABLET PO SCH (06:34)
[2020-10-31 07:15] LABS: COVID AG,FIA SOURCE NASOPHARYNGEAL
[2020-10-31 08:21] VITALS: BP 100/62
[2020-10-31] MEDS: VIIBRYD 20 MG PO SCH (08:25)
[2020-10-31] MEDS: DIVALPROEX SODIUM 500 MG DR TABLET PO SCH ×2 (08:26→20:33)
[2020-10-31] MEDS: CALCIUM CIT/VITAMIN D3 200 MG-250 UNITS TABLET PO SCH ×3 (08:26→16:13)
[2020-10-31] MEDS: OMEPRAZOLE 20 MG CAPSULE PO SCH (08:27)
[2020-10-31] MEDS: BUDESONIDE/FORMOTEROL FUMARATE 160-4.5 MCG/PUFF 10.2 GM INHALER IH SCH ×2 (08:39→16:14)
[2020-10-31] MEDS: LORazepam 2 MG TABLET PO PRN (10:27)
[2020-10-31 16:08] VITALS: BP 107/65
[2020-10-31] MEDS: OLANZapine 5 MG TABLET PO SCH (16:13)
[2020-10-31] MEDS: ROSUVASTATIN CALCIUM 10 MG TABLET PO SCH (20:32)
[2020-10-31] MEDS: QUEtiapine FUMARATE 100 MG TABLET PO SCH (20:33)
[2020-10-31] MEDS: TOPIRAMATE 100 MG TABLET PO SCH (20:33)
[2020-11-01 06:17] VITALS: BP 96/60
[2020-11-01] MEDS: LEVOTHYROXINE SODIUM 88 MCG TABLET PO SCH (06:30)
[2020-11-01 08:10] VITALS: BP 106/65
[2020-11-01] MEDS: DIVALPROEX SODIUM 500 MG DR TABLET PO SCH ×2 (08:22→20:53)
[2020-11-01] MEDS: OMEPRAZOLE 20 MG CAPSULE PO SCH (08:22)
[2020-11-01] MEDS: OLANZapine 5 MG TABLET PO SCH ×2 (08:22→08:34)
[2020-11-01] MEDS: BUDESONIDE/FORMOTEROL FUMARATE 160-4.5 MCG/PUFF 10.2 GM INHALER IH SCH ×2 (08:23→16:29)
[2020-11-01] MEDS: VIIBRYD 20 MG PO SCH (08:24)
[2020-11-01] MEDS: CALCIUM CIT/VITAMIN D3 200 MG-250 UNITS TABLET PO SCH ×3 (08:24→16:29)
[2020-11-01 16:08] VITALS: BP 101/68
[2020-11-01] MEDS: HALOPERIDOL 5 MG TABLET PO SCH (16:29)
[2020-11-01] MEDS: QUEtiapine FUMARATE 100 MG TABLET PO SCH (20:53)
[2020-11-01] MEDS: TOPIRAMATE 100 MG TABLET PO SCH (20:53)
[2020-11-02 00:13] VITALS: BP 104/62
[2020-11-02] MEDS: LEVOTHYROXINE SODIUM 88 MCG TABLET PO SCH (06:42)
[2020-11-02 07:36] LABS: ANION GAP 8 mmol/L (8-16); CARBON DIOXIDE 25 mmol/L (22-29); CHLORIDE 111 mmol/L (98-107); CREATININE 0.83 mg/dL (0.60-1.30); GLOMERULAR FILTR. RATE CALC > 60 mL/min (>60); GLUCOSE,RANDOM 81 mg/dL (70-110); POTASSIUM 4.3 mmol/L (3.5-5.1); SODIUM SERUM 144 mmol/L (136-145); UREA NITROGEN, BLOOD 15 mg/dL (7-18)
[2020-11-02 08:04] VITALS: BP 104/60
[2020-11-02] MEDS: HALOPERIDOL 5 MG TABLET PO SCH (08:42)
[2020-11-02] MEDS: IBUPROFEN 600 MG TABLET PO PRN (08:42)
[2020-11-02] MEDS: OMEPRAZOLE 20 MG CAPSULE PO SCH (08:42)
[2020-11-02] MEDS: DIVALPROEX SODIUM 500 MG DR TABLET PO SCH ×2 (08:42→20:30)
[2020-11-02] MEDS: CALCIUM CIT/VITAMIN D3 200 MG-250 UNITS TABLET PO SCH ×3 (08:43→16:09)
[2020-11-02] MEDS: VIIBRYD 20 MG PO SCH (08:43)
[2020-11-02] MEDS: BUDESONIDE/FORMOTEROL FUMARATE 160-4.5 MCG/PUFF 10.2 GM INHALER IH SCH ×2 (08:44→16:10)
[2020-11-02 16:01] VITALS: BP 103/61
[2020-11-02] MEDS: HALOPERIDOL 5 MG TABLET PO PRN (19:09)
[2020-11-02] MEDS: ROSUVASTATIN CALCIUM 10 MG TABLET PO SCH (20:29)
[2020-11-02] MEDS: TOPIRAMATE 100 MG TABLET PO SCH (20:30)
[2020-11-02] MEDS: QUEtiapine FUMARATE 100 MG TABLET PO SCH (20:31)
[2020-11-03 06:03] VITALS: BP 106/60
[2020-11-03] MEDS: LEVOTHYROXINE SODIUM 88 MCG TABLET PO SCH (06:30)
[2020-11-03] MEDS: DIVALPROEX SODIUM 500 MG DR TABLET PO SCH ×2 (08:02→20:11)
[2020-11-03] MEDS: OMEPRAZOLE 20 MG CAPSULE PO SCH (08:02)
[2020-11-03] MEDS: CALCIUM CIT/VITAMIN D3 200 MG-250 UNITS TABLET PO SCH ×3 (08:03→16:08)
[2020-11-03] MEDS: VIIBRYD 20 MG PO SCH (08:04)
[2020-11-03] MEDS: BUDESONIDE/FORMOTEROL FUMARATE 160-4.5 MCG/PUFF 10.2 GM INHALER IH SCH ×2 (08:05→16:07)
[2020-11-03 08:30] VITALS: BP 103/58
[2020-11-03] MEDS: [UNRECOGNIZED DRUG - OTHER] PO SCH ×2 (09:00→16:08)
[2020-11-03 16:03] VITALS: BP 100/61
[2020-11-03] MEDS: QUEtiapine FUMARATE 100 MG TABLET PO SCH (20:11)
[2020-11-03] MEDS: TOPIRAMATE 100 MG TABLET PO SCH (20:11)
[2020-11-04 00:02] VITALS: BP 96/59
[2020-11-04] MEDS: IBUPROFEN 600 MG TABLET PO PRN ×2 (03:54→13:03)
[2020-11-04] MEDS: LEVOTHYROXINE SODIUM 88 MCG TABLET PO SCH (06:52)
[2020-11-04] MEDS: BUDESONIDE/FORMOTEROL FUMARATE 160-4.5 MCG/PUFF 10.2 GM INHALER IH SCH ×2 (08:09→16:18)
[2020-11-04] MEDS: OMEPRAZOLE 20 MG CAPSULE PO SCH (08:09)
[2020-11-04] MEDS: DIVALPROEX SODIUM 500 MG DR TABLET PO SCH ×2 (08:10→20:05)
[2020-11-04 08:11] VITALS: BP 118/66
[2020-11-04] MEDS: CALCIUM CIT/VITAMIN D3 200 MG-250 UNITS TABLET PO SCH ×3 (08:14→16:16)
[2020-11-04] MEDS: VIIBRYD 20 MG PO SCH (08:14)
[2020-11-04] MEDS: [UNRECOGNIZED DRUG - OTHER] PO SCH ×2 (08:19→16:16)
[2020-11-04 16:09] VITALS: BP 108/67
[2020-11-04] MEDS: HALOPERIDOL 5 MG TABLET PO PRN (17:47)
[2020-11-04] MEDS: TOPIRAMATE 100 MG TABLET PO SCH (20:05)
[2020-11-04] MEDS: QUEtiapine FUMARATE 100 MG TABLET PO SCH (20:05)
[2020-11-04] MEDS: ROSUVASTATIN CALCIUM 10 MG TABLET PO SCH (20:05)
[2020-11-05 00:08] VITALS: BP 105/62
[2020-11-05] MEDS: LEVOTHYROXINE SODIUM 88 MCG TABLET PO SCH (06:43)
[2020-11-05 08:08] VITALS: BP 101/61
[2020-11-05] MEDS: [UNRECOGNIZED DRUG - OTHER] PO SCH ×2 (08:19→16:46)
[2020-11-05] MEDS: CALCIUM CIT/VITAMIN D3 200 MG-250 UNITS TABLET PO SCH ×3 (08:20→16:46)
[2020-11-05] MEDS: OMEPRAZOLE 20 MG CAPSULE PO SCH (08:20)
[2020-11-05] MEDS: DIVALPROEX SODIUM 500 MG DR TABLET PO SCH ×2 (08:20→20:52)
[2020-11-05] MEDS: VIIBRYD 20 MG PO SCH (08:21)
[2020-11-05] MEDS: BUDESONIDE/FORMOTEROL FUMARATE 160-4.5 MCG/PUFF 10.2 GM INHALER IH SCH ×2 (08:22→16:47)
[2020-11-05 16:03] VITALS: BP 109/55
[2020-11-05] MEDS: SULFAMETHOX/TRIMETH DS 800-160 MG/TABLET PO SCH (16:46)
[2020-11-05] MEDS: HALOPERIDOL 5 MG TABLET PO PRN (17:29)
[2020-11-05] MEDS: TOPIRAMATE 100 MG TABLET PO SCH (20:52)
[2020-11-05] MEDS: QUEtiapine FUMARATE 100 MG TABLET PO SCH (20:52)
[2020-11-05] MEDS: NEOMYCIN/BACITRACIN/POLYMYXIN B 30 GM OINTMENT TP SCH (21:28)
[2020-11-06 01:14] VITALS: BP 105/63
[2020-11-06 08:23] VITALS: BP 107/61
[2020-11-06] MEDS: SULFAMETHOX/TRIMETH DS 800-160 MG/TABLET PO SCH ×2 (08:25→16:26)
[2020-11-06] MEDS: VIIBRYD 20 MG PO SCH (08:25)
[2020-11-06] MEDS: [UNRECOGNIZED DRUG - OTHER] PO SCH ×2 (08:25→16:26)
[2020-11-06] MEDS: CALCIUM CIT/VITAMIN D3 200 MG-250 UNITS TABLET PO SCH ×3 (08:25→16:26)
[2020-11-06] MEDS: DIVALPROEX SODIUM 500 MG DR TABLET PO SCH ×2 (08:25→20:10)
[2020-11-06] MEDS: OMEPRAZOLE 20 MG CAPSULE PO SCH (08:25)
[2020-11-06] MEDS: NEOMYCIN/BACITRACIN/POLYMYXIN B 30 GM OINTMENT TP SCH ×2 (08:26→16:27)
[2020-11-06] MEDS: BUDESONIDE/FORMOTEROL FUMARATE 160-4.5 MCG/PUFF 10.2 GM INHALER IH SCH ×2 (08:26→16:27)
[2020-11-06] MEDS: HALOPERIDOL 5 MG TABLET PO PRN ×2 (08:44→20:13)
[2020-11-06 08:59] LABS: APPEARANCE,URINE CLEAR (CLEAR); BILIRUBIN,URINE NEGATIVE (NEGATIVE); GLUCOSE, URINE (UA) NEGATIVE (NEGATIVE); KETONES,URINE NEGATIVE (NEGATIVE); LEUKOCYTE ESTERASE ,URINE NEGATIVE (NEGATIVE); NITRATE,URINE NEGATIVE (NEGATIVE); OCCULT BLOOD,URINE NEGATIVE (NEGATIVE); PH,URINE 6.5 (5.0-8.0); PROTEIN,URINE NEGATIVE (NEGATIVE); UROBILINOGEN,URINE 0.2 mg/dL (<=1.0)
[2020-11-06] MEDS: LEVOTHYROXINE SODIUM 88 MCG TABLET PO SCH (09:07)
[2020-11-06 09:09] LABS: BACTERIA,URINE None Seen /HPF (None Seen); RBC,URINE None Seen /HPF (0-2); WBC,URINE None Seen /HPF (0-5)
[2020-11-06 17:13] VITALS: BP 102/61
[2020-11-06] MEDS: BISMUTH SUBSALICYLATE 262 MG CHEWABLE TABLET CHEW PRN (19:45)
[2020-11-06] MEDS: ROSUVASTATIN CALCIUM 10 MG TABLET PO SCH (20:10)
[2020-11-06] MEDS: QUEtiapine FUMARATE 100 MG TABLET PO SCH (20:11)
[2020-11-06] MEDS: TOPIRAMATE 100 MG TABLET PO SCH (20:11)
[2020-11-07 01:33] VITALS: BP 108/64
[2020-11-07] MEDS: LEVOTHYROXINE SODIUM 88 MCG TABLET PO SCH (06:23)
[2020-11-07 07:16] LABS: COVID AG,FIA SOURCE NASOPHARYNGEAL
[2020-11-07 08:03] VITALS: BP 102/60
[2020-11-07] MEDS: BUDESONIDE/FORMOTEROL FUMARATE 160-4.5 MCG/PUFF 10.2 GM INHALER IH SCH ×2 (08:16→16:48)
[2020-11-07] MEDS: CALCIUM CIT/VITAMIN D3 200 MG-250 UNITS TABLET PO SCH ×3 (08:17→16:47)
[2020-11-07] MEDS: VIIBRYD 20 MG PO SCH (08:17)
[2020-11-07] MEDS: OMEPRAZOLE 20 MG CAPSULE PO SCH (08:17)
[2020-11-07] MEDS: DIVALPROEX SODIUM 500 MG DR TABLET PO SCH ×2 (08:17→21:10)
[2020-11-07] MEDS: [UNRECOGNIZED DRUG - OTHER] PO SCH ×2 (08:17→16:47)
[2020-11-07] MEDS: SULFAMETHOX/TRIMETH DS 800-160 MG/TABLET PO SCH ×2 (08:17→16:47)
[2020-11-07] MEDS: NEOMYCIN/BACITRACIN/POLYMYXIN B 30 GM OINTMENT TP SCH ×2 (08:18→16:49)
[2020-11-07] MEDS: BISMUTH SUBSALICYLATE 262 MG CHEWABLE TABLET CHEW PRN ×2 (15:55→21:11)
[2020-11-07 16:02] VITALS: BP 103/64
[2020-11-07] MEDS: QUEtiapine FUMARATE 100 MG TABLET PO SCH (21:10)
[2020-11-07] MEDS: TOPIRAMATE 100 MG TABLET PO SCH (21:10)
[2020-11-08 00:21] VITALS: BP 102/65
[2020-11-08] MEDS: LEVOTHYROXINE SODIUM 88 MCG TABLET PO SCH (06:41)
[2020-11-08] MEDS: [UNRECOGNIZED DRUG - OTHER] PO SCH ×2 (08:03→16:08)
[2020-11-08] MEDS: VIIBRYD 20 MG PO SCH (08:03)
[2020-11-08] MEDS: NEOMYCIN/BACITRACIN/POLYMYXIN B 30 GM OINTMENT TP SCH ×2 (08:04→16:09)
[2020-11-08] MEDS: DIVALPROEX SODIUM 500 MG DR TABLET PO SCH ×2 (08:04→20:05)
[2020-11-08] MEDS: CALCIUM CIT/VITAMIN D3 200 MG-250 UNITS TABLET PO SCH ×3 (08:04→16:08)
[2020-11-08] MEDS: SULFAMETHOX/TRIMETH DS 800-160 MG/TABLET PO SCH ×2 (08:04→16:08)
[2020-11-08] MEDS: OMEPRAZOLE 20 MG CAPSULE PO SCH (08:04)
[2020-11-08] MEDS: BUDESONIDE/FORMOTEROL FUMARATE 160-4.5 MCG/PUFF 10.2 GM INHALER IH SCH ×2 (08:04→16:07)
[2020-11-08 08:14] VITALS: BP 101/60
[2020-11-08 16:12] VITALS: BP 100/63
[2020-11-08] MEDS: HALOPERIDOL 5 MG TABLET PO PRN (17:27)
[2020-11-08] MEDS: QUEtiapine FUMARATE 100 MG TABLET PO SCH (20:05)
[2020-11-08] MEDS: TOPIRAMATE 100 MG TABLET PO SCH (20:05)
[2020-11-08] MEDS: ROSUVASTATIN CALCIUM 10 MG TABLET PO SCH (20:06)
[2020-11-09 04:42] VITALS: BP 100/64
[2020-11-09] MEDS: LEVOTHYROXINE SODIUM 88 MCG TABLET PO SCH (07:29)
[2020-11-09 08:16] VITALS: BP 108/61
[2020-11-09] MEDS: [UNRECOGNIZED DRUG - OTHER] PO SCH (08:34)
[2020-11-09] MEDS: VIIBRYD 20 MG PO SCH (08:34)
[2020-11-09] MEDS: OMEPRAZOLE 20 MG CAPSULE PO SCH (08:35)
[2020-11-09] MEDS: CALCIUM CIT/VITAMIN D3 200 MG-250 UNITS TABLET PO SCH (08:35)
[2020-11-09] MEDS: DIVALPROEX SODIUM 500 MG DR TABLET PO SCH (08:35)
[2020-11-09] MEDS: NEOMYCIN/BACITRACIN/POLYMYXIN B 30 GM OINTMENT TP SCH (08:36)
[2020-11-09] MEDS: BUDESONIDE/FORMOTEROL FUMARATE 160-4.5 MCG/PUFF 10.2 GM INHALER IH SCH (09:12)
[2020-11-09] MEDS: BISMUTH SUBSALICYLATE 262 MG CHEWABLE TABLET CHEW PRN (09:13)
[2020-11-09] MEDS: SULFAMETHOX/TRIMETH DS 800-160 MG/TABLET PO SCH (09:53)
[2020-11-09] MEDS ORDERED: QUET100T33 PO (11:06)
[2020-11-09] MEDS ORDERED: DIVA-112 PO (11:06)
[2020-11-09] MEDS ORDERED: TOPI100T37 PO (11:06)
[2020-11-09] MEDS ORDERED: OMEP20 PO (12:03)
[2020-11-09] MEDS ORDERED: ROSU10TA72 PO (12:07)
[2020-11-09] MEDS ORDERED: BUDE10.2 IH (12:08)
[2020-11-09] MEDS ORDERED: LEVO88TA4 PO (12:08)
[2020-11-09] MEDS ORDERED: CALC-789 PO (12:14)
[2020-11-09] MEDS ORDERED: SULF1TAB42 PO (12:58)
== END 2020-11-09 15:01 | disposition home or self-care (01) | DRG 885 ==
LOC: B2X 13:33
DX: F25.0 Schizoaffective disorder, bipolar type (principal); R45.851 Suicidal ideations; F43.12 Post-traumatic stress disorder, chronic; G43.909 Migraine, unspecified, not intractable, without status migrainosus; J45.909 Unspecified asthma, uncomplicated; K21.9 Gastro-esophageal reflux disease without esophagitis; M19.90 Unspecified osteoarthritis, unspecified site; E55.9 Vitamin D deficiency, unspecified; E03.9 Hypothyroidism, unspecified; Z79.899 Other long term (current) drug therapy; Z59.0 Homelessness; Z20.822 Contact with and (suspected) exposure to COVID-19; F41.9 Anxiety disorder, unspecified; Z86.718 Personal history of other venous thrombosis and embolism
CPT/HCPCS: 80048; 80053; 80164; 80307; 81001; 81003; 83036; 84436; 84439; 84443; 84484; 84702; 85025; A9575; G0480

== ENCOUNTER 2020-12-05 12:22 | Inpatient (IN) | payer MEDICARE, MEDICAID ==
[~2020-12-05] VITALS: Ht 170.2 cm; Wt 79.8 kg
[~2020-12-05 12:22] MED LIST changes: -ARIP15TA27 PO; -ARIP400S3 IM; +BUDE10.2 IH; +CALC-789 PO; +DIVA-112 PO; -FLUO-191 PO; +LEVO88TA4 PO; +OMEP20 PO; +QUET100T34 PO; -QUET25TA PO; +ROSU10TA72 PO; +SULF1TAB42 PO
[2020-12-05] MEDS ORDERED: ZOLPIDEM TARTRATE 10 MG TABLET PO PRN (13:00)
[2020-12-05] MEDS ORDERED: HALOPERIDOL 5 MG TABLET PO PRN (13:00)
[2020-12-05 16:30] VITALS: BP 110/62
[2020-12-05] MEDS ORDERED: PNEUMOCOCCAL VACCINE POLYVALENT 0.5 ML VIAL [PPSV23] IM. ONE (18:15)
[2020-12-05] MEDS: LORazepam 2 MG TABLET PO PRN (18:37)
[2020-12-05] MEDS: BENZOCAINE/MENTHOL LOZENGE PO PRN (20:54)
[2020-12-06 00:35] VITALS: BP 105/63
[2020-12-06] MEDS ORDERED: CloNIDine HCL 0.1 MG TABLET PO PRN (08:00)
[2020-12-06] MEDS ORDERED: GuaiFENesin/D-METHORPHAN [SUGAR-FREE] 200-20MG/10 ML SYRUP UDCUP PO PRN (08:00)
[2020-12-06] MEDS ORDERED: ALBUTEROL SULFATE HFA 90 MCG/PUFF 8 GM INHALER IH PRN (08:00)
[2020-12-06] MEDS ORDERED: ONDANSETRON HCL 4 MG TABLET PO PRN (08:00)
[2020-12-06] MEDS ORDERED: ACETAMINOPHEN 325 MG TABLET PO PRN (08:00)
[2020-12-06] MEDS ORDERED: MAGNESIUM HYDROXIDE SUSPENSION 30 ML UDCUP PO PRN (08:00)
[2020-12-06] MEDS ORDERED: NICOTINE 14 MG/24 HOUR PATCH TD PRN (08:00)
[2020-12-06] MEDS ORDERED: DOCUSATE SODIUM 100 MG CAPSULE PO PRN (08:00)
[2020-12-06] MEDS ORDERED: PETROLATUM,WHITE 28 GM JELLY TP PRN (08:00)
[2020-12-06] MEDS ORDERED: LOPERAMIDE HCL 2 MG CAPSULE PO PRN (08:00)
[2020-12-06 08:01] VITALS: BP 108/67
[2020-12-06] MEDS: OMEPRAZOLE 20 MG CAPSULE PO SCH (09:24)
[2020-12-06] MEDS: BUDESONIDE/FORMOTEROL FUMARATE 160-4.5 MCG/PUFF 10.2 GM INHALER IH SCH ×2 (11:28→16:14)
[2020-12-06] MEDS: CALCIUM OYSTER SHELL 250 MG-VIT D3 125 UNITS TABLET PO SCH ×2 (11:29→16:10)
[2020-12-06] MEDS: DIVALPROEX SODIUM 500 MG DR TABLET PO SCH ×2 (12:47→20:13)
[2020-12-06 16:09] VITALS: BP 118/73
[2020-12-06] MEDS: ESCITALOPRAM OXALATE 10 MG TABLET PO SCH (16:10)
[2020-12-06] MEDS: FLUTICASONE PROPIONATE 50 MCG/SPRAY 16 GM NASAL SPRAY NASAL SCH (16:14)
[2020-12-06] MEDS: BENZOCAINE/MENTHOL LOZENGE PO PRN (18:20)
[2020-12-06] MEDS: MAG HYDROX/AL HYDROX/SIMETH ES 30 ML SUSPENSION UDCUP PO PRN (18:20)
[2020-12-06] MEDS: LEVOTHYROXINE SODIUM 88 MCG TABLET PO SCH (20:13)
[2020-12-06] MEDS: QUEtiapine FUMARATE 100 MG TABLET PO SCH (20:14)
[2020-12-06] MEDS: TOPIRAMATE 100 MG TABLET PO SCH (20:14)
[2020-12-06] MEDS: ROSUVASTATIN CALCIUM 10 MG TABLET PO SCH (20:16)
[2020-12-07 05:07] VITALS: BP 105/53
[2020-12-07] MEDS ORDERED: LEVOTHYROXINE SODIUM 88 MCG TABLET PO SCH (06:30)
[2020-12-07 08:45] VITALS: BP 110/66
[2020-12-07 09:11] LABS: BASOPHILS % (AUTO) 0.4 % (0.0-2.0); EOSINOPHILS % (AUTO) 1.6 % (1.0-6.0); HEMATOCRIT 35.2 % (36-46); HEMOGLOBIN 11.4 g/dL (12.0-16.0); LYMPHOCYTES # (AUTO) 1.2 K/uL (1.0-4.8); LYMPHOCYTES % (AUTO) 22.3 % (22.0-44.0); MEAN CORPUSCULAR HEMOGLOBIN 30.8 pg (26.0-34.0); MEAN CORPUSCULAR HGB CONC 32.5 G/dL (31.0-37.0); MEAN CORPUSCULAR VOLUME 95 fL (80-100); MONOCYTES # (AUTO) 0.6 K/uL (0.1-1.0); MONOCYTES % (AUTO) 10.9 % (2.0-9.0); NEUTROPHILS # (AUTO) 3.5 K/uL (1.8-7.7); NEUTROPHILS % (AUTO) 64.8 % (40.0-70.0); RED BLOOD CELL COUNT(AUTO) 3.72 MIL/uL (4.00-5.20)
[2020-12-07 09:12] LABS: PLATELET COUNT (AUTO) 100 K/uL (150-450)
[2020-12-07 09:23] LABS: HEMOGLOBIN A1C 4.3 % (3.8-5.6)
[2020-12-07] MEDS: BUDESONIDE/FORMOTEROL FUMARATE 160-4.5 MCG/PUFF 10.2 GM INHALER IH SCH ×2 (09:34→16:34)
[2020-12-07] MEDS: FLUTICASONE PROPIONATE 50 MCG/SPRAY 16 GM NASAL SPRAY NASAL SCH ×2 (09:34→16:34)
[2020-12-07] MEDS: DIVALPROEX SODIUM 500 MG DR TABLET PO SCH ×2 (09:34→20:32)
[2020-12-07] MEDS: IBUPROFEN 400 MG TABLET PO PRN (09:34)
[2020-12-07] MEDS: OMEPRAZOLE 20 MG CAPSULE PO SCH (09:34)
[2020-12-07] MEDS: CALCIUM OYSTER SHELL 250 MG-VIT D3 125 UNITS TABLET PO SCH ×2 (09:34→16:33)
[2020-12-07] MEDS: ESCITALOPRAM OXALATE 10 MG TABLET PO SCH (09:34)
[2020-12-07 10:35] LABS: ALANINE AMINOTRANSFERASE 32 U/L (12-78); ALBUMIN 2.9 g/dL (3.4-5.0); ALKALINE PHOSPHATASE 69 U/L (46-116); ANION GAP 4 mmol/L (8-16); ASPARTATE AMINOTRANSFERASE 23 U/L (15-37); BILIRUBIN,TOTAL 0.3 mg/dL (0.1-1.0); CALCIUM, TOTAL 7.8 mg/dL (8.8-10.5); CARBON DIOXIDE 25 mmol/L (22-29); CHLORIDE 110 mmol/L (98-107); CHOL/HDL RATIO 1.8 (3.9-5.7); CHOLESTEROL 97 mg/dL (131-200); CREATININE 0.72 mg/dL (0.60-1.30); FREE T4 (FREE THYROXINE) 1.08 ng/dL (0.76-1.46); GLOMERULAR FILTR. RATE CALC > 60 mL/min (>60); GLUCOSE,RANDOM 82 mg/dL (70-110); HCG,QUANTITATIVE 3 mIU/mL (0-6); HDL CHOLESTEROL 55 mg/dL (40-60); LDL CHOL (CALC.) 29 mg/dL (0-130); POTASSIUM 4.2 mmol/L (3.5-5.1); SODIUM SERUM 139 mmol/L (136-145); THYROID STIMULATING HORMONE 2.11 uIU/mL (0.36-3.74); TOTAL PROTEIN, SERUM 5.1 g/dL (6.4-8.2); TRIGLYCERIDES 63 mg/dL (15-150); UREA NITROGEN, BLOOD 12 mg/dL (7-18)
[2020-12-07] MEDS ORDERED: ARIPiprazole LAUROXIL ER SUSPENSION 882 MG/3.2 ML SYRINGE IM SCH (12:15)
[2020-12-07 16:32] VITALS: BP 111/68
[2020-12-07] MEDS: LEVOTHYROXINE SODIUM 88 MCG TABLET PO SCH ×2 (16:34→20:32)
[2020-12-07] MEDS: BENZOCAINE/MENTHOL LOZENGE PO PRN (18:52)
[2020-12-07] MEDS: MAG HYDROX/AL HYDROX/SIMETH ES 30 ML SUSPENSION UDCUP PO PRN (19:14)
[2020-12-07] MEDS: TOPIRAMATE 100 MG TABLET PO SCH (20:32)
[2020-12-07] MEDS: QUEtiapine FUMARATE 100 MG TABLET PO SCH (20:32)
[2020-12-07] MEDS: ROSUVASTATIN CALCIUM 10 MG TABLET PO SCH (20:33)
[2020-12-07] MEDS: LOXAPINE SUCCINATE 25 MG CAPSULE PO SCH (21:00)
[2020-12-08 03:30] VITALS: BP 107/68
[2020-12-08 07:37] LABS: APPEARANCE,URINE CLEAR (CLEAR); BILIRUBIN,URINE NEGATIVE (NEGATIVE); GLUCOSE, URINE (UA) NEGATIVE (NEGATIVE); KETONES,URINE NEGATIVE (NEGATIVE); LEUKOCYTE ESTERASE ,URINE NEGATIVE (NEGATIVE); NITRATE,URINE NEGATIVE (NEGATIVE); OCCULT BLOOD,URINE NEGATIVE (NEGATIVE); PROTEIN,URINE NEGATIVE (NEGATIVE)
[2020-12-08 07:47] LABS: AMPHET/METH SCREEN,URINE NEGATIVE (NEGATIVE); BARBITURATE SCREEN, URINE NEGATIVE (NEGATIVE); BENZODIAZEPINES SCREEN,URINE NEGATIVE (NEGATIVE); CANNABINOID SCREEN,URINE NEGATIVE (NEGATIVE); COCAINE SCREEN,URINE NEGATIVE (NEGATIVE); METHADONE SCREEN, URINE NEGATIVE (NEGATIVE); OPIATE SCREEN,URINE NEGATIVE (NEGATIVE); PHENCYCLIDINE SCREEN,URINE NEGATIVE (NEGATIVE)
[2020-12-08] MEDS: DIVALPROEX SODIUM 500 MG DR TABLET PO SCH ×2 (08:23→20:58)
[2020-12-08] MEDS: OMEPRAZOLE 20 MG CAPSULE PO SCH (08:23)
[2020-12-08] MEDS: CALCIUM OYSTER SHELL 250 MG-VIT D3 125 UNITS TABLET PO SCH ×2 (08:24→16:27)
[2020-12-08] MEDS: ESCITALOPRAM OXALATE 10 MG TABLET PO SCH (08:25)
[2020-12-08] MEDS: FLUTICASONE PROPIONATE 50 MCG/SPRAY 16 GM NASAL SPRAY NASAL SCH ×2 (08:25→16:26)
[2020-12-08] MEDS: BUDESONIDE/FORMOTEROL FUMARATE 160-4.5 MCG/PUFF 10.2 GM INHALER IH SCH ×2 (08:27→16:26)
[2020-12-08 08:28] VITALS: BP 102/65
[2020-12-08] MEDS ORDERED: *PATIENT'S OWN MED [ENTER DRUG, DOSE, FREQUENCY IN COMMENTS] CLINICAL ONE (08:30)
[2020-12-08] MEDS ORDERED: VIIBRYD 20 MG PO SCH (09:00)
[2020-12-08] MEDS: DEXILANT 30 MG PO SCH (09:00)
[2020-12-08] MEDS: IBUPROFEN 400 MG TABLET PO PRN (09:40)
[2020-12-08] MEDS ORDERED: OMEPRAZOLE 20 MG CAPSULE PO PRN (13:15)
[2020-12-08 16:15] VITALS: BP 100/67
[2020-12-08] MEDS: MAG HYDROX/AL HYDROX/SIMETH ES 30 ML SUSPENSION UDCUP PO PRN (18:56)
[2020-12-08] MEDS: BENZOCAINE/MENTHOL LOZENGE PO PRN (18:57)
[2020-12-08] MEDS: QUEtiapine FUMARATE 100 MG TABLET PO SCH (20:57)
[2020-12-08] MEDS: TOPIRAMATE 100 MG TABLET PO SCH (20:57)
[2020-12-08] MEDS: ROSUVASTATIN CALCIUM 10 MG TABLET PO SCH (20:58)
[2020-12-08] MEDS: LEVOTHYROXINE SODIUM 88 MCG TABLET PO SCH (20:58)
[2020-12-08] MEDS: LOXAPINE SUCCINATE 25 MG CAPSULE PO SCH (20:58)
[2020-12-09 00:12] VITALS: BP 98/65
[2020-12-09 08:03] VITALS: BP 109/69
[2020-12-09 08:28] VITALS: BP 109/69
[2020-12-09] MEDS: ESCITALOPRAM OXALATE 10 MG TABLET PO SCH (08:45)
[2020-12-09] MEDS: DEXILANT 30 MG PO SCH (08:46)
[2020-12-09] MEDS: CALCIUM OYSTER SHELL 250 MG-VIT D3 125 UNITS TABLET PO SCH ×2 (08:46→16:32)
[2020-12-09] MEDS: DIVALPROEX SODIUM 500 MG DR TABLET PO SCH ×2 (08:46→18:54)
[2020-12-09] MEDS: VIIBRYD 20 MG PO SCH (08:48)
[2020-12-09] MEDS: FLUTICASONE PROPIONATE 50 MCG/SPRAY 16 GM NASAL SPRAY NASAL SCH ×2 (08:48→16:32)
[2020-12-09] MEDS: BUDESONIDE/FORMOTEROL FUMARATE 160-4.5 MCG/PUFF 10.2 GM INHALER IH SCH ×2 (08:51→16:33)
[2020-12-09 16:03] VITALS: BP 100/61
[2020-12-09 16:53] VITALS: BP 110/69
[2020-12-09] MEDS: IBUPROFEN 400 MG TABLET PO PRN (17:03)
[2020-12-09] MEDS: LOXAPINE SUCCINATE 25 MG CAPSULE PO SCH (18:54)
[2020-12-09] MEDS: QUEtiapine FUMARATE 100 MG TABLET PO SCH (18:54)
[2020-12-09] MEDS: ROSUVASTATIN CALCIUM 10 MG TABLET PO SCH (18:54)
[2020-12-09] MEDS: TOPIRAMATE 100 MG TABLET PO SCH (18:55)
[2020-12-09] MEDS: LEVOTHYROXINE SODIUM 88 MCG TABLET PO SCH (18:55)
[2020-12-09] MEDS: MAG HYDROX/AL HYDROX/SIMETH ES 30 ML SUSPENSION UDCUP PO PRN (20:15)
[2020-12-10 05:09] VITALS: BP 102/62
[2020-12-10 08:15] VITALS: BP 91/56
[2020-12-10] MEDS: FLUTICASONE PROPIONATE 50 MCG/SPRAY 16 GM NASAL SPRAY NASAL SCH ×2 (08:58→16:29)
[2020-12-10] MEDS: BUDESONIDE/FORMOTEROL FUMARATE 160-4.5 MCG/PUFF 10.2 GM INHALER IH SCH ×2 (08:59→16:29)
[2020-12-10] MEDS: DIVALPROEX SODIUM 500 MG DR TABLET PO SCH ×2 (09:01→20:04)
[2020-12-10] MEDS: CALCIUM OYSTER SHELL 250 MG-VIT D3 125 UNITS TABLET PO SCH ×2 (09:01→16:28)
[2020-12-10] MEDS: ESCITALOPRAM OXALATE 10 MG TABLET PO SCH (09:01)
[2020-12-10] MEDS: VIIBRYD 20 MG PO SCH (09:03)
[2020-12-10] MEDS: DEXILANT 30 MG PO SCH (09:03)
[2020-12-10 09:47] LABS: COVID AG,FIA SOURCE NASOPHARYNGEAL
[2020-12-10] MEDS: IBUPROFEN 400 MG TABLET PO PRN (10:11)
[2020-12-10] MEDS: MAG HYDROX/AL HYDROX/SIMETH ES 30 ML SUSPENSION UDCUP PO PRN (13:46)
[2020-12-10 16:10] VITALS: BP 105/65
[2020-12-10] MEDS: LEVOTHYROXINE SODIUM 88 MCG TABLET PO SCH (20:00)
[2020-12-10] MEDS: LOXAPINE SUCCINATE 25 MG CAPSULE PO SCH (20:02)
[2020-12-10] MEDS: TOPIRAMATE 100 MG TABLET PO SCH (20:04)
[2020-12-10] MEDS: ROSUVASTATIN CALCIUM 10 MG TABLET PO SCH (20:04)
[2020-12-10] MEDS: QUEtiapine FUMARATE 100 MG TABLET PO SCH (20:04)
[2020-12-11 00:14] VITALS: BP 108/62
[2020-12-11 08:07] VITALS: BP 90/53
[2020-12-11] MEDS: ESCITALOPRAM OXALATE 10 MG TABLET PO SCH (09:04)
[2020-12-11] MEDS: FLUTICASONE PROPIONATE 50 MCG/SPRAY 16 GM NASAL SPRAY NASAL SCH ×2 (09:04→16:11)
[2020-12-11] MEDS: BUDESONIDE/FORMOTEROL FUMARATE 160-4.5 MCG/PUFF 10.2 GM INHALER IH SCH ×2 (09:04→16:11)
[2020-12-11] MEDS: DIVALPROEX SODIUM 500 MG DR TABLET PO SCH ×2 (09:04→19:53)
[2020-12-11] MEDS: IBUPROFEN 400 MG TABLET PO PRN (09:05)
[2020-12-11] MEDS: CALCIUM OYSTER SHELL 250 MG-VIT D3 125 UNITS TABLET PO SCH ×2 (09:05→16:11)
[2020-12-11] MEDS: DEXILANT 30 MG PO SCH (09:06)
[2020-12-11] MEDS: VIIBRYD 20 MG PO SCH (09:06)
[2020-12-11 16:13] VITALS: BP 106/62
[2020-12-11] MEDS: TOPIRAMATE 100 MG TABLET PO SCH (19:52)
[2020-12-11] MEDS: LOXAPINE SUCCINATE 25 MG CAPSULE PO SCH (19:52)
[2020-12-11] MEDS: ROSUVASTATIN CALCIUM 10 MG TABLET PO SCH (19:53)
[2020-12-11] MEDS: LEVOTHYROXINE SODIUM 88 MCG TABLET PO SCH (19:53)
[2020-12-11] MEDS: QUEtiapine FUMARATE 100 MG TABLET PO SCH (19:53)
[2020-12-12 00:07] VITALS: BP 102/64
[2020-12-12 08:05] VITALS: BP 108/61
[2020-12-12] MEDS: BUDESONIDE/FORMOTEROL FUMARATE 160-4.5 MCG/PUFF 10.2 GM INHALER IH SCH ×2 (08:37→16:53)
[2020-12-12] MEDS: FLUTICASONE PROPIONATE 50 MCG/SPRAY 16 GM NASAL SPRAY NASAL SCH ×2 (08:37→16:53)
[2020-12-12] MEDS: CALCIUM OYSTER SHELL 250 MG-VIT D3 125 UNITS TABLET PO SCH ×2 (08:38→16:53)
[2020-12-12] MEDS: DEXILANT 30 MG PO SCH (08:39)
[2020-12-12] MEDS: ESCITALOPRAM OXALATE 10 MG TABLET PO SCH (08:41)
[2020-12-12] MEDS: VIIBRYD 20 MG PO SCH (08:41)
[2020-12-12] MEDS: DIVALPROEX SODIUM 500 MG DR TABLET PO SCH ×2 (08:41→18:38)
[2020-12-12] MEDS: BENZTROPINE MESYLATE 0.5 MG TABLET PO SCH ×2 (12:30→18:37)
[2020-12-12 16:09] VITALS: BP 104/62
[2020-12-12] MEDS: LOXAPINE SUCCINATE 25 MG CAPSULE PO SCH (18:37)
[2020-12-12] MEDS: TOPIRAMATE 100 MG TABLET PO SCH (18:38)
[2020-12-12] MEDS: ROSUVASTATIN CALCIUM 10 MG TABLET PO SCH (18:38)
[2020-12-12] MEDS: QUEtiapine FUMARATE 100 MG TABLET PO SCH (18:38)
[2020-12-12] MEDS: LEVOTHYROXINE SODIUM 88 MCG TABLET PO SCH (19:25)
[2020-12-13 00:23] VITALS: BP 108/60
[2020-12-13 08:13] VITALS: BP 106/64
[2020-12-13] MEDS: ESCITALOPRAM OXALATE 10 MG TABLET PO SCH (10:21)
[2020-12-13] MEDS: DIVALPROEX SODIUM 500 MG DR TABLET PO SCH ×2 (10:22→20:06)
[2020-12-13] MEDS: CALCIUM OYSTER SHELL 250 MG-VIT D3 125 UNITS TABLET PO SCH ×2 (10:22→16:34)
[2020-12-13] MEDS: BENZTROPINE MESYLATE 0.5 MG TABLET PO SCH ×2 (10:22→20:06)
[2020-12-13] MEDS: VIIBRYD 20 MG PO SCH (10:24)
[2020-12-13] MEDS: DEXILANT 30 MG PO SCH (10:24)
[2020-12-13] MEDS: FLUTICASONE PROPIONATE 50 MCG/SPRAY 16 GM NASAL SPRAY NASAL SCH ×2 (10:26→16:33)
[2020-12-13] MEDS: BUDESONIDE/FORMOTEROL FUMARATE 160-4.5 MCG/PUFF 10.2 GM INHALER IH SCH ×2 (10:27→16:33)
[2020-12-13 16:02] VITALS: BP 104/56
[2020-12-13] MEDS: IBUPROFEN 400 MG TABLET PO PRN (16:37)
[2020-12-13] MEDS: TOPIRAMATE 100 MG TABLET PO SCH (20:06)
[2020-12-13] MEDS: QUEtiapine FUMARATE 100 MG TABLET PO SCH (20:06)
[2020-12-13] MEDS: ROSUVASTATIN CALCIUM 10 MG TABLET PO SCH (20:07)
[2020-12-13] MEDS: LOXAPINE SUCCINATE 25 MG CAPSULE PO SCH (20:07)
[2020-12-13] MEDS: LEVOTHYROXINE SODIUM 88 MCG TABLET PO SCH (21:18)
[2020-12-14 00:23] VITALS: BP 102/68
[2020-12-14 08:08] VITALS: BP 104/67
[2020-12-14] MEDS: BUDESONIDE/FORMOTEROL FUMARATE 160-4.5 MCG/PUFF 10.2 GM INHALER IH SCH ×2 (08:13→16:31)
[2020-12-14] MEDS: FLUTICASONE PROPIONATE 50 MCG/SPRAY 16 GM NASAL SPRAY NASAL SCH ×2 (08:14→16:31)
[2020-12-14] MEDS: VIIBRYD 20 MG PO SCH (08:15)
[2020-12-14] MEDS: DEXILANT 30 MG PO SCH (08:15)
[2020-12-14] MEDS: CALCIUM OYSTER SHELL 250 MG-VIT D3 125 UNITS TABLET PO SCH ×2 (08:16→16:30)
[2020-12-14] MEDS: DIVALPROEX SODIUM 500 MG DR TABLET PO SCH ×2 (08:16→19:01)
[2020-12-14] MEDS: ESCITALOPRAM OXALATE 10 MG TABLET PO SCH (08:16)
[2020-12-14] MEDS: BENZTROPINE MESYLATE 0.5 MG TABLET PO SCH ×2 (08:16→19:07)
[2020-12-14 08:59] LABS: BILIRUBIN,URINE NEGATIVE (NEGATIVE); GLUCOSE, URINE (UA) NEGATIVE (NEGATIVE); KETONES,URINE NEGATIVE (NEGATIVE); LEUKOCYTE ESTERASE ,URINE NEGATIVE (NEGATIVE); NITRATE,URINE NEGATIVE (NEGATIVE); OCCULT BLOOD,URINE NEGATIVE (NEGATIVE); PH,URINE 5.5 (5.0-8.0); PROTEIN,URINE NEGATIVE (NEGATIVE); UROBILINOGEN,URINE 0.2 mg/dL (<=1.0)
[2020-12-14 10:43] LABS: APPEARANCE,URINE SLIGHTLY CLOUDY (CLEAR)
[2020-12-14 16:02] VITALS: BP 119/59
[2020-12-14] MEDS: ROSUVASTATIN CALCIUM 10 MG TABLET PO SCH (19:01)
[2020-12-14] MEDS: LEVOTHYROXINE SODIUM 88 MCG TABLET PO SCH (19:01)
[2020-12-14] MEDS: LOXAPINE SUCCINATE 25 MG CAPSULE PO SCH (19:02)
[2020-12-14] MEDS: QUEtiapine FUMARATE 100 MG TABLET PO SCH (19:02)
[2020-12-14] MEDS: TOPIRAMATE 100 MG TABLET PO SCH (19:02)
[2020-12-15 04:03] VITALS: BP 98/66
[2020-12-15 09:13] VITALS: BP 110/68
[2020-12-15] MEDS: BUDESONIDE/FORMOTEROL FUMARATE 160-4.5 MCG/PUFF 10.2 GM INHALER IH SCH ×2 (09:39→17:16)
[2020-12-15] MEDS: BENZTROPINE MESYLATE 0.5 MG TABLET PO SCH ×2 (09:40→18:46)
[2020-12-15] MEDS: ESCITALOPRAM OXALATE 10 MG TABLET PO SCH (09:40)
[2020-12-15] MEDS: DIVALPROEX SODIUM 500 MG DR TABLET PO SCH ×2 (09:40→18:49)
[2020-12-15] MEDS: FLUTICASONE PROPIONATE 50 MCG/SPRAY 16 GM NASAL SPRAY NASAL SCH ×2 (09:40→17:15)
[2020-12-15] MEDS: VIIBRYD 20 MG PO SCH (09:42)
[2020-12-15] MEDS: DEXILANT 30 MG PO SCH (09:43)
[2020-12-15] MEDS: CALCIUM OYSTER SHELL 250 MG-VIT D3 125 UNITS TABLET PO SCH ×2 (09:44→17:14)
[2020-12-15 16:17] VITALS: BP 108/64
[2020-12-15] MEDS: ROSUVASTATIN CALCIUM 10 MG TABLET PO SCH (18:48)
[2020-12-15] MEDS: LEVOTHYROXINE SODIUM 88 MCG TABLET PO SCH (18:49)
[2020-12-15] MEDS: LOXAPINE SUCCINATE 25 MG CAPSULE PO SCH (18:49)
[2020-12-15] MEDS: TOPIRAMATE 100 MG TABLET PO SCH (18:50)
[2020-12-15] MEDS: QUEtiapine FUMARATE 100 MG TABLET PO SCH (18:50)
[2020-12-16 05:11] VITALS: BP 102/62
[2020-12-16 08:08] VITALS: BP 109/64
[2020-12-16] MEDS: FLUTICASONE PROPIONATE 50 MCG/SPRAY 16 GM NASAL SPRAY NASAL SCH ×2 (09:20→17:44)
[2020-12-16] MEDS: DIVALPROEX SODIUM 500 MG DR TABLET PO SCH ×2 (09:22→19:01)
[2020-12-16] MEDS: BENZTROPINE MESYLATE 0.5 MG TABLET PO SCH ×2 (09:22→19:06)
[2020-12-16] MEDS: ESCITALOPRAM OXALATE 10 MG TABLET PO SCH (09:23)
[2020-12-16] MEDS: CALCIUM OYSTER SHELL 250 MG-VIT D3 125 UNITS TABLET PO SCH ×2 (09:23→17:04)
[2020-12-16] MEDS: DEXILANT 30 MG PO SCH (09:25)
[2020-12-16] MEDS: VIIBRYD 20 MG PO SCH (09:26)
[2020-12-16] MEDS: BUDESONIDE/FORMOTEROL FUMARATE 160-4.5 MCG/PUFF 10.2 GM INHALER IH SCH ×2 (09:26→17:43)
[2020-12-16 16:11] VITALS: BP 107/61
[2020-12-16] MEDS: ROSUVASTATIN CALCIUM 10 MG TABLET PO SCH (19:01)
[2020-12-16] MEDS: TOPIRAMATE 100 MG TABLET PO SCH (19:01)
[2020-12-16] MEDS: QUEtiapine FUMARATE 100 MG TABLET PO SCH (19:01)
[2020-12-16] MEDS: LOXAPINE SUCCINATE 25 MG CAPSULE PO SCH (19:02)
[2020-12-16] MEDS: LEVOTHYROXINE SODIUM 88 MCG TABLET PO SCH (19:04)
[2020-12-17 06:49] VITALS: BP 112/76
[2020-12-17 07:19] LABS: COVID AG,FIA SOURCE NASOPHARYNGEAL
[2020-12-17] MEDS: BUDESONIDE/FORMOTEROL FUMARATE 160-4.5 MCG/PUFF 10.2 GM INHALER IH SCH ×2 (08:15→16:32)
[2020-12-17] MEDS: VIIBRYD 20 MG PO SCH (08:16)
[2020-12-17] MEDS: FLUTICASONE PROPIONATE 50 MCG/SPRAY 16 GM NASAL SPRAY NASAL SCH ×2 (08:16→16:31)
[2020-12-17] MEDS: BENZTROPINE MESYLATE 0.5 MG TABLET PO SCH ×2 (08:17→18:42)
[2020-12-17] MEDS: CALCIUM OYSTER SHELL 250 MG-VIT D3 125 UNITS TABLET PO SCH ×2 (08:17→16:31)
[2020-12-17] MEDS: DEXILANT 30 MG PO SCH (08:17)
[2020-12-17] MEDS: ESCITALOPRAM OXALATE 10 MG TABLET PO SCH (08:17)
[2020-12-17] MEDS: DIVALPROEX SODIUM 500 MG DR TABLET PO SCH ×2 (08:17→18:42)
[2020-12-17 08:20] VITALS: BP 106/64
[2020-12-17 17:29] VITALS: BP 116/70
[2020-12-17] MEDS: TOPIRAMATE 100 MG TABLET PO SCH (18:42)
[2020-12-17] MEDS: LOXAPINE SUCCINATE 25 MG CAPSULE PO SCH (18:42)
[2020-12-17] MEDS: QUEtiapine FUMARATE 100 MG TABLET PO SCH (18:42)
[2020-12-17] MEDS: ROSUVASTATIN CALCIUM 10 MG TABLET PO SCH (18:42)
[2020-12-17] MEDS: LEVOTHYROXINE SODIUM 88 MCG TABLET PO SCH (18:58)
[2020-12-18 04:12] VITALS: BP 118/68
[2020-12-18 08:20] VITALS: BP 98/60
[2020-12-18] MEDS: FLUTICASONE PROPIONATE 50 MCG/SPRAY 16 GM NASAL SPRAY NASAL SCH ×2 (08:43→16:53)
[2020-12-18] MEDS: BUDESONIDE/FORMOTEROL FUMARATE 160-4.5 MCG/PUFF 10.2 GM INHALER IH SCH ×2 (08:43→16:53)
[2020-12-18] MEDS: DIVALPROEX SODIUM 500 MG DR TABLET PO SCH ×2 (08:43→18:59)
[2020-12-18] MEDS: ESCITALOPRAM OXALATE 10 MG TABLET PO SCH (08:43)
[2020-12-18] MEDS: CALCIUM OYSTER SHELL 250 MG-VIT D3 125 UNITS TABLET PO SCH ×2 (08:43→16:52)
[2020-12-18] MEDS: BENZTROPINE MESYLATE 0.5 MG TABLET PO SCH ×2 (08:43→18:58)
[2020-12-18] MEDS: DEXILANT 30 MG PO SCH (08:44)
[2020-12-18] MEDS: VIIBRYD 20 MG PO SCH (08:45)
[2020-12-18 16:08] VITALS: BP 101/63
[2020-12-18] MEDS: TOPIRAMATE 100 MG TABLET PO SCH (18:59)
[2020-12-18] MEDS: ROSUVASTATIN CALCIUM 10 MG TABLET PO SCH (18:59)
[2020-12-18] MEDS: LOXAPINE SUCCINATE 25 MG CAPSULE PO SCH (18:59)
[2020-12-18] MEDS: QUEtiapine FUMARATE 100 MG TABLET PO SCH (19:00)
[2020-12-18] MEDS: LEVOTHYROXINE SODIUM 88 MCG TABLET PO SCH (19:56)
[2020-12-19 04:26] VITALS: BP 103/66
[2020-12-19 08:35] VITALS: BP 101/65
[2020-12-19] MEDS: BENZTROPINE MESYLATE 0.5 MG TABLET PO SCH ×2 (08:35→19:01)
[2020-12-19] MEDS: FLUTICASONE PROPIONATE 50 MCG/SPRAY 16 GM NASAL SPRAY NASAL SCH ×2 (08:35→16:39)
[2020-12-19] MEDS: CALCIUM OYSTER SHELL 250 MG-VIT D3 125 UNITS TABLET PO SCH ×2 (08:35→16:39)
[2020-12-19] MEDS: BUDESONIDE/FORMOTEROL FUMARATE 160-4.5 MCG/PUFF 10.2 GM INHALER IH SCH ×2 (08:35→16:39)
[2020-12-19] MEDS: DEXILANT 30 MG PO SCH (08:36)
[2020-12-19] MEDS: DIVALPROEX SODIUM 500 MG DR TABLET PO SCH ×2 (08:36→19:01)
[2020-12-19] MEDS: ESCITALOPRAM OXALATE 10 MG TABLET PO SCH (08:36)
[2020-12-19] MEDS: VIIBRYD 20 MG PO SCH (08:37)
[2020-12-19 16:09] VITALS: BP 109/65
[2020-12-19] MEDS: LOXAPINE SUCCINATE 25 MG CAPSULE PO SCH (19:00)
[2020-12-19] MEDS: ROSUVASTATIN CALCIUM 10 MG TABLET PO SCH (19:01)
[2020-12-19] MEDS: TOPIRAMATE 100 MG TABLET PO SCH (19:01)
[2020-12-19] MEDS: QUEtiapine FUMARATE 100 MG TABLET PO SCH (19:01)
[2020-12-19] MEDS: LEVOTHYROXINE SODIUM 88 MCG TABLET PO SCH (19:39)
[2020-12-20 01:26] VITALS: BP 101/66
[2020-12-20 08:10] VITALS: BP 100/63
[2020-12-20] MEDS: DIVALPROEX SODIUM 500 MG DR TABLET PO SCH ×2 (08:46→18:49)
[2020-12-20] MEDS: CALCIUM OYSTER SHELL 250 MG-VIT D3 125 UNITS TABLET PO SCH ×2 (08:46→16:33)
[2020-12-20] MEDS: ESCITALOPRAM OXALATE 10 MG TABLET PO SCH (08:46)
[2020-12-20] MEDS: VIIBRYD 20 MG PO SCH (08:47)
[2020-12-20] MEDS: DEXILANT 30 MG PO SCH (08:47)
[2020-12-20] MEDS: BUDESONIDE/FORMOTEROL FUMARATE 160-4.5 MCG/PUFF 10.2 GM INHALER IH SCH ×2 (08:49→16:33)
[2020-12-20] MEDS: FLUTICASONE PROPIONATE 50 MCG/SPRAY 16 GM NASAL SPRAY NASAL SCH ×2 (08:49→16:33)
[2020-12-20] MEDS: BENZTROPINE MESYLATE 0.5 MG TABLET PO SCH ×2 (08:51→18:49)
[2020-12-20 16:15] VITALS: BP 108/67
[2020-12-20] MEDS: TOPIRAMATE 100 MG TABLET PO SCH (18:49)
[2020-12-20] MEDS: LOXAPINE SUCCINATE 25 MG CAPSULE PO SCH (18:49)
[2020-12-20] MEDS: LEVOTHYROXINE SODIUM 88 MCG TABLET PO SCH (18:49)
[2020-12-20] MEDS: ROSUVASTATIN CALCIUM 10 MG TABLET PO SCH (18:49)
[2020-12-20] MEDS: QUEtiapine FUMARATE 100 MG TABLET PO SCH (18:49)
[2020-12-21 03:33] VITALS: BP 106/62
[2020-12-21] MEDS: BUDESONIDE/FORMOTEROL FUMARATE 160-4.5 MCG/PUFF 10.2 GM INHALER IH SCH ×2 (08:30→16:31)
[2020-12-21] MEDS: DIVALPROEX SODIUM 500 MG DR TABLET PO SCH ×2 (08:30→19:02)
[2020-12-21] MEDS: BENZTROPINE MESYLATE 0.5 MG TABLET PO SCH ×2 (08:30→19:01)
[2020-12-21] MEDS: FLUTICASONE PROPIONATE 50 MCG/SPRAY 16 GM NASAL SPRAY NASAL SCH ×2 (08:30→16:31)
[2020-12-21] MEDS: ESCITALOPRAM OXALATE 10 MG TABLET PO SCH (08:30)
[2020-12-21] MEDS: CALCIUM OYSTER SHELL 250 MG-VIT D3 125 UNITS TABLET PO SCH ×2 (08:31→16:31)
[2020-12-21] MEDS: VIIBRYD 20 MG PO SCH (08:32)
[2020-12-21] MEDS: DEXILANT 30 MG PO SCH (08:32)
[2020-12-21 08:38] VITALS: BP 104/62
[2020-12-21] MEDS: LORazepam 2 MG TABLET PO PRN (12:59)
[2020-12-21 16:10] VITALS: BP 102/65
[2020-12-21] MEDS: LOXAPINE SUCCINATE 25 MG CAPSULE PO SCH (19:01)
[2020-12-21] MEDS: TOPIRAMATE 100 MG TABLET PO SCH (19:02)
[2020-12-21] MEDS: ROSUVASTATIN CALCIUM 10 MG TABLET PO SCH (19:02)
[2020-12-21] MEDS: LEVOTHYROXINE SODIUM 88 MCG TABLET PO SCH (19:02)
[2020-12-21] MEDS: QUEtiapine FUMARATE 100 MG TABLET PO SCH (19:02)
[2020-12-22 04:46] VITALS: BP 107/76
[2020-12-22 08:38] VITALS: BP 100/60
[2020-12-22] MEDS: BUDESONIDE/FORMOTEROL FUMARATE 160-4.5 MCG/PUFF 10.2 GM INHALER IH SCH ×2 (09:42→16:36)
[2020-12-22] MEDS: CALCIUM OYSTER SHELL 250 MG-VIT D3 125 UNITS TABLET PO SCH ×2 (09:43→16:34)
[2020-12-22] MEDS: FLUTICASONE PROPIONATE 50 MCG/SPRAY 16 GM NASAL SPRAY NASAL SCH ×2 (09:43→16:35)
[2020-12-22] MEDS: ESCITALOPRAM OXALATE 10 MG TABLET PO SCH (09:43)
[2020-12-22] MEDS: DIVALPROEX SODIUM 500 MG DR TABLET PO SCH ×2 (09:44→18:05)
[2020-12-22] MEDS: BENZTROPINE MESYLATE 0.5 MG TABLET PO SCH ×2 (09:44→18:13)
[2020-12-22] MEDS: DEXILANT 30 MG PO SCH (09:45)
[2020-12-22] MEDS: VIIBRYD 20 MG PO SCH (09:45)
[2020-12-22 16:15] VITALS: BP 103/71
[2020-12-22] MEDS: TOPIRAMATE 100 MG TABLET PO SCH (18:05)
[2020-12-22] MEDS: QUEtiapine FUMARATE 100 MG TABLET PO SCH (18:05)
[2020-12-22] MEDS: LOXAPINE SUCCINATE 25 MG CAPSULE PO SCH (18:06)
[2020-12-22] MEDS: LEVOTHYROXINE SODIUM 88 MCG TABLET PO SCH (18:06)
[2020-12-22] MEDS: ROSUVASTATIN CALCIUM 10 MG TABLET PO SCH (18:06)
[2020-12-23 05:50] VITALS: BP 115/61
[2020-12-23 06:55] LABS: APPEARANCE,URINE CLEAR (CLEAR); BILIRUBIN,URINE NEGATIVE (NEGATIVE); GLUCOSE, URINE (UA) NEGATIVE (NEGATIVE); KETONES,URINE NEGATIVE (NEGATIVE); LEUKOCYTE ESTERASE ,URINE NEGATIVE (NEGATIVE); NITRATE,URINE NEGATIVE (NEGATIVE); OCCULT BLOOD,URINE NEGATIVE (NEGATIVE); PROTEIN,URINE NEGATIVE (NEGATIVE); UROBILINOGEN,URINE 0.2 mg/dL (<=1.0)
[2020-12-23 08:12] VITALS: BP 106/66
[2020-12-23] MEDS: BUDESONIDE/FORMOTEROL FUMARATE 160-4.5 MCG/PUFF 10.2 GM INHALER IH SCH ×2 (08:14→16:35)
[2020-12-23] MEDS: CALCIUM OYSTER SHELL 250 MG-VIT D3 125 UNITS TABLET PO SCH ×2 (08:14→16:34)
[2020-12-23] MEDS: FLUTICASONE PROPIONATE 50 MCG/SPRAY 16 GM NASAL SPRAY NASAL SCH ×2 (08:14→16:35)
[2020-12-23] MEDS: DIVALPROEX SODIUM 500 MG DR TABLET PO SCH ×2 (08:14→19:06)
[2020-12-23] MEDS: DEXILANT 30 MG PO SCH (08:15)
[2020-12-23] MEDS: VIIBRYD 20 MG PO SCH (08:15)
[2020-12-23] MEDS: BENZTROPINE MESYLATE 0.5 MG TABLET PO SCH ×2 (08:38→19:05)
[2020-12-23 16:03] VITALS: BP 101/64
[2020-12-23] MEDS: TOPIRAMATE 100 MG TABLET PO SCH (19:05)
[2020-12-23] MEDS: ROSUVASTATIN CALCIUM 10 MG TABLET PO SCH (19:06)
[2020-12-23] MEDS: QUEtiapine FUMARATE 200 MG TABLET PO SCH (19:06)
[2020-12-23] MEDS: LEVOTHYROXINE SODIUM 88 MCG TABLET PO SCH (19:06)
[2020-12-23] MEDS: LOXAPINE SUCCINATE 25 MG CAPSULE PO SCH (22:12)
[2020-12-24 00:16] VITALS: BP 110/65
[2020-12-24 07:31] LABS: COVID AG,FIA SOURCE NASOPHARYNGEAL
[2020-12-24] MEDS: VIIBRYD 20 MG PO SCH (09:00)
[2020-12-24] MEDS: BENZTROPINE MESYLATE 0.5 MG TABLET PO SCH ×2 (09:20→18:16)
[2020-12-24] MEDS: CALCIUM OYSTER SHELL 250 MG-VIT D3 125 UNITS TABLET PO SCH ×2 (09:20→16:55)
[2020-12-24] MEDS: DIVALPROEX SODIUM 500 MG DR TABLET PO SCH ×2 (09:20→18:34)
[2020-12-24] MEDS: FLUTICASONE PROPIONATE 50 MCG/SPRAY 16 GM NASAL SPRAY NASAL SCH ×2 (09:21→16:56)
[2020-12-24] MEDS: BUDESONIDE/FORMOTEROL FUMARATE 160-4.5 MCG/PUFF 10.2 GM INHALER IH SCH ×2 (09:22→16:56)
[2020-12-24] MEDS: DEXILANT 30 MG PO SCH (09:22)
[2020-12-24 11:31] VITALS: BP 112/61
[2020-12-24 16:16] VITALS: BP 110/60
[2020-12-24] MEDS: ROSUVASTATIN CALCIUM 10 MG TABLET PO SCH (18:34)
[2020-12-24] MEDS: LEVOTHYROXINE SODIUM 88 MCG TABLET PO SCH (18:34)
[2020-12-24] MEDS: LOXAPINE SUCCINATE 25 MG CAPSULE PO SCH (18:35)
[2020-12-24] MEDS: TOPIRAMATE 100 MG TABLET PO SCH (18:36)
[2020-12-24] MEDS: QUEtiapine FUMARATE 200 MG TABLET PO SCH (18:37)
[2020-12-25 00:16] VITALS: BP 106/62
[2020-12-25 08:20] VITALS: BP 118/73
[2020-12-25] MEDS: BUDESONIDE/FORMOTEROL FUMARATE 160-4.5 MCG/PUFF 10.2 GM INHALER IH SCH ×2 (08:32→17:04)
[2020-12-25] MEDS: BENZTROPINE MESYLATE 0.5 MG TABLET PO SCH (08:32)
[2020-12-25] MEDS: CALCIUM OYSTER SHELL 250 MG-VIT D3 125 UNITS TABLET PO SCH ×2 (08:32→17:05)
[2020-12-25] MEDS: FLUTICASONE PROPIONATE 50 MCG/SPRAY 16 GM NASAL SPRAY NASAL SCH ×2 (08:32→17:04)
[2020-12-25] MEDS: DIVALPROEX SODIUM 500 MG DR TABLET PO SCH ×2 (08:33→19:37)
[2020-12-25] MEDS: VIIBRYD 20 MG PO SCH (08:34)
[2020-12-25] MEDS: DEXILANT 30 MG PO SCH (08:34)
[2020-12-25 16:03] VITALS: BP 113/67
[2020-12-25] MEDS: LEVOTHYROXINE SODIUM 88 MCG TABLET PO SCH (19:37)
[2020-12-25] MEDS: QUEtiapine FUMARATE 200 MG TABLET PO SCH (19:37)
[2020-12-25] MEDS: TOPIRAMATE 100 MG TABLET PO SCH (19:37)
[2020-12-25] MEDS: ROSUVASTATIN CALCIUM 10 MG TABLET PO SCH (19:38)
[2020-12-25] MEDS: BENZTROPINE MESYLATE 1 MG TABLET PO SCH (19:38)
[2020-12-25] MEDS: LOXAPINE SUCCINATE 25 MG CAPSULE PO SCH (19:41)
[2020-12-26 00:07] VITALS: BP 102/70
[2020-12-26 08:08] VITALS: BP 100/64
[2020-12-26] MEDS: FLUTICASONE PROPIONATE 50 MCG/SPRAY 16 GM NASAL SPRAY NASAL SCH ×2 (08:45→16:56)
[2020-12-26] MEDS: DIVALPROEX SODIUM 500 MG DR TABLET PO SCH ×2 (08:45→19:09)
[2020-12-26] MEDS: BUDESONIDE/FORMOTEROL FUMARATE 160-4.5 MCG/PUFF 10.2 GM INHALER IH SCH ×2 (08:45→16:56)
[2020-12-26] MEDS: CALCIUM OYSTER SHELL 250 MG-VIT D3 125 UNITS TABLET PO SCH ×2 (08:46→16:55)
[2020-12-26] MEDS: BENZTROPINE MESYLATE 1 MG TABLET PO SCH ×2 (08:46→19:06)
[2020-12-26] MEDS: VIIBRYD 20 MG PO SCH (08:47)
[2020-12-26] MEDS: DEXILANT 30 MG PO SCH (08:48)
[2020-12-26 16:03] VITALS: BP 136/83
[2020-12-26] MEDS: ROSUVASTATIN CALCIUM 10 MG TABLET PO SCH (19:08)
[2020-12-26] MEDS: QUEtiapine FUMARATE 200 MG TABLET PO SCH (19:09)
[2020-12-26] MEDS: LEVOTHYROXINE SODIUM 88 MCG TABLET PO SCH (19:09)
[2020-12-26] MEDS: TOPIRAMATE 100 MG TABLET PO SCH (19:10)
[2020-12-26] MEDS: LOXAPINE SUCCINATE 25 MG CAPSULE PO SCH (19:11)
[2020-12-27 00:09] VITALS: BP 108/61
[2020-12-27 08:27] VITALS: BP 100/70
[2020-12-27] MEDS: FLUTICASONE PROPIONATE 50 MCG/SPRAY 16 GM NASAL SPRAY NASAL SCH ×2 (09:29→16:23)
[2020-12-27] MEDS: CALCIUM OYSTER SHELL 250 MG-VIT D3 125 UNITS TABLET PO SCH ×2 (09:29→16:24)
[2020-12-27] MEDS: BUDESONIDE/FORMOTEROL FUMARATE 160-4.5 MCG/PUFF 10.2 GM INHALER IH SCH ×2 (09:29→16:24)
[2020-12-27] MEDS: VIIBRYD 20 MG PO SCH (09:30)
[2020-12-27] MEDS: DIVALPROEX SODIUM 500 MG DR TABLET PO SCH ×2 (09:30→18:26)
[2020-12-27] MEDS: DEXILANT 30 MG PO SCH (09:31)
[2020-12-27] MEDS: BENZTROPINE MESYLATE 1 MG TABLET PO SCH ×2 (09:35→18:25)
[2020-12-27 16:04] VITALS: BP 99/68
[2020-12-27] MEDS: LEVOTHYROXINE SODIUM 88 MCG TABLET PO SCH (18:24)
[2020-12-27] MEDS: QUEtiapine FUMARATE 200 MG TABLET PO SCH (18:25)
[2020-12-27] MEDS: ROSUVASTATIN CALCIUM 10 MG TABLET PO SCH (18:25)
[2020-12-27] MEDS: TOPIRAMATE 100 MG TABLET PO SCH (18:25)
[2020-12-27] MEDS: LOXAPINE SUCCINATE 25 MG CAPSULE PO SCH (18:27)
[2020-12-28 01:44] VITALS: BP 104/57
[2020-12-28] MEDS: MAG HYDROX/AL HYDROX/SIMETH ES 30 ML SUSPENSION UDCUP PO PRN (05:02)
[2020-12-28 08:01] VITALS: BP 109/67
[2020-12-28] MEDS: DIVALPROEX SODIUM 500 MG DR TABLET PO SCH (08:56)
[2020-12-28] MEDS: FLUTICASONE PROPIONATE 50 MCG/SPRAY 16 GM NASAL SPRAY NASAL SCH (08:56)
[2020-12-28] MEDS: BENZTROPINE MESYLATE 1 MG TABLET PO SCH (08:56)
[2020-12-28] MEDS: BUDESONIDE/FORMOTEROL FUMARATE 160-4.5 MCG/PUFF 10.2 GM INHALER IH SCH (08:56)
[2020-12-28] MEDS: VIIBRYD 20 MG PO SCH (08:57)
[2020-12-28] MEDS: CALCIUM OYSTER SHELL 250 MG-VIT D3 125 UNITS TABLET PO SCH (08:57)
[2020-12-28] MEDS: DEXILANT 30 MG PO SCH (08:58)
[2020-12-28] MEDS ORDERED: DIVA-112 PO ×2 (09:27→09:53)
[2020-12-28] MEDS ORDERED: LOXA25CA13 PO (09:37)
[2020-12-28] MEDS ORDERED: LEVO88TA4 PO (09:39)
[2020-12-28] MEDS ORDERED: TOPI100T37 PO ×2 (09:41→09:42)
[2020-12-28] MEDS ORDERED: QUET200T PO (09:41)
[2020-12-28] MEDS ORDERED: FLUT16H NASAL (09:43)
[2020-12-28] MEDS ORDERED: BENZ1TAB10 PO ×2 (09:53→09:54)
== END 2020-12-28 12:51 | disposition home or self-care (01) | DRG 885 ==
LOC: B2X 16:26
DX: F25.0 Schizoaffective disorder, bipolar type (principal); R45.851 Suicidal ideations; F43.12 Post-traumatic stress disorder, chronic; E03.9 Hypothyroidism, unspecified; M19.90 Unspecified osteoarthritis, unspecified site; G43.909 Migraine, unspecified, not intractable, without status migrainosus; Z20.822 Contact with and (suspected) exposure to COVID-19; K21.9 Gastro-esophageal reflux disease without esophagitis; E55.9 Vitamin D deficiency, unspecified; E78.5 Hyperlipidemia, unspecified; G89.29 Other chronic pain; J45.909 Unspecified asthma, uncomplicated; Z79.899 Other long term (current) drug therapy; Z86.718 Personal history of other venous thrombosis and embolism; Z74.01 Bed confinement status
CPT/HCPCS: 80053; 80061; 80307; 81003; 83036; 84436; 84439; 84443; 84702; 85025; 87081; 90732; A9575

== ENCOUNTER 2023-03-15 18:01 | Emergency (ER) | payer MEDICARE, OTHER ==
[~2023-03-15] VITALS: Ht 160 cm; Wt 75.0 kg
[~2023-03-15 18:01] MED LIST changes: -BUDE10.2 IH; +COPP2TAB PO; -DIVA-112 PO; +FLUT16SP NASAL; -OMEP20 PO; +POTA-364 PO; -QUET100T34 PO; -ROSU10TA72 PO; -SULF1TAB42 PO; +VIBE75TA PO
[2023-03-15 19:30] LABS: BASOPHILS % (AUTO) 0.4 % (0.0-2.0); EOSINOPHILS % (AUTO) 0.7 % (1.0-6.0); HEMATOCRIT 39.1 % (36-46); HEMOGLOBIN 13.1 g/dL (12.0-16.0); LYMPHOCYTES # (AUTO) 1.2 K/uL (1.0-4.8); LYMPHOCYTES % (AUTO) 17.3 % (22.0-44.0); MEAN CORPUSCULAR HEMOGLOBIN 32.6 pg (26.0-34.0); MEAN CORPUSCULAR HGB CONC 33.7 G/dL (31.0-37.0); MEAN CORPUSCULAR VOLUME 97 fL (80-100); MONOCYTES # (AUTO) 0.5 K/uL (0.1-1.0); MONOCYTES % (AUTO) 7.9 % (2.0-9.0); NEUTROPHILS # (AUTO) 5.1 K/uL (1.8-7.7); NEUTROPHILS % (AUTO) 73.7 % (40.0-70.0); PLATELET COUNT (AUTO) 161 K/uL (150-450); RED BLOOD CELL COUNT(AUTO) 4.03 MIL/uL (4.00-5.20)
[2023-03-15 19:49] LABS: CALCIUM, TOTAL 9.4 mg/dL (8.8-10.5); CREATININE 1.03 mg/dL (0.60-1.30); POTASSIUM 3.4 mmol/L (3.5-5.1)
[2023-03-15 19:57] LABS: LACTIC ACID 0.4 mmol/L (0.4-2.0)
[2023-03-15 20:14] LABS: ALBUMIN 3.9 g/dL (3.4-5.0); BILIRUBIN,TOTAL 0.5 mg/dL (0.1-1.0); TOTAL PROTEIN, SERUM 6.5 g/dL (6.4-8.2)
[2023-03-15] MEDS ORDERED: IOHEXOL 350 MG/ML 100 ML VIAL ONE (20:36)
[2023-03-15] MEDS ORDERED: SODIUM CHLORIDE 0.9% 100 ML ONE (20:36)
[2023-03-16] MEDS ORDERED: CLINDAMYCIN HCL 150 MG CAPSULE PO ONE (01:15)
[2023-03-16 01:30] VITALS: BP 127/63; PULSE 79; RESP 18; TEMP 97.8
== END 2023-03-16 01:30 | disposition home or self-care (01) ==
LOC: EMS 18:08
DX: F25.0 Schizoaffective disorder, bipolar type (principal); R60.0 Localized edema; F41.9 Anxiety disorder, unspecified; F31.9 Bipolar disorder, unspecified; E03.9 Hypothyroidism, unspecified; G43.909 Migraine, unspecified, not intractable, without status migrainosus; Z90.710 Acquired absence of both cervix and uterus; Z98.890 Other specified postprocedural states; Z88.8 Allergy status to other drugs, medicaments and biological substances
CPT/HCPCS: 99285; 93970; 73701; 80053; 82550; 83605; 83690; 85025; 85379; 36415; 93005; Q9967; J7050